=== PATIENT | male | born 1950 | race Caucasian/White ===

== ENCOUNTER → 2016-08-22 | Outpatient (CLI) | payer BC ==
[~2016-08-22] MED LIST: ASCO500T16 PO; CALCTAB5 PO
== END | disposition home or self-care (01) ==
LOC: C.LABPVFM 08:35
PROVIDERS: ATTEND Family Medicine
DX: C61 Malignant neoplasm of prostate (principal)

== ENCOUNTER → 2017-02-27 | Outpatient (CLI) | payer OTHER, BC | END | disposition home or self-care (01) | LOC: C.LABPVFM 09:40 | PROVIDERS: ATTEND Family Medicine | DX: C61 Malignant neoplasm of prostate (principal) ==

== ENCOUNTER → 2017-06-12 | Outpatient (CLI) | payer OTHER, BC | END | disposition home or self-care (01) | LOC: C.LABSPEC 16:25 | PROVIDERS: ATTEND Dermatology | DX: L30.0 Nummular dermatitis (principal) ==

== ENCOUNTER → 2017-07-06 | Outpatient (CLI) | payer OTHER, BC ==
[2017-07-06 13:11] LABS: HEMATOCRIT 46.4 % (42-52); HEMOGLOBIN 16.1 g/dL (14.0-18.0); MEAN CELL VOLUME 102.9 fL (80-100); MEAN CORPUSCULAR HEMOGLOBIN 35.7 pg (25-34); MEAN CORPUSCULAR HGB CONC 34.7 g/dl (32-36); MEAN PLATELET VOLUME 10.6 fL (7.4-10.4); PLATELET COUNT 192 K/uL (130-400); RED CELL DISTRIBUTION WIDTH CV 13.2 % (11.5-14.5); RED CELL DISTRIBUTION WIDTH SD 49.9 fL (36.4-46.3); WHITE BLOOD COUNT 5.42 K/uL (4.8-10.8)
[2017-07-06 13:32] LABS: ALBUMIN 3.4 gm/dl (3.4-5.0); ALT/SGPT 41 U/L (12-78); BLOOD UREA NITROGEN 11 mg/dl (7-18); CALCIUM 8.6 mg/dl (8.5-10.1); CARBON DIOXIDE 26 mmol/L (21-32); CHOLESTEROL 169 mg/dl (0-200); CREATININE 0.84 mg/dl (0.60-1.40); GLUCOSE 81 mg/dl (70-99); LIPASE 105 U/L (73-393); POTASSIUM 3.8 mmol/L (3.5-5.1); SODIUM 137 mmol/L (136-145)
[2017-07-06 13:36] LABS: ALKALINE PHOSPHATASE 112 U/L (45-117); AST/SGOT 30 U/L (15-37); LDL CHOLESTEROL CALCULATED 96 mg/dl; TOTAL PROTEIN 7.2 gm/dl (6.4-8.2)
== END | disposition home or self-care (01) ==
LOC: C.LABPVFM 07:45
PROVIDERS: ATTEND Family Medicine
DX: E55.9 Vitamin D deficiency, unspecified (principal)

== ENCOUNTER → 2017-07-10 | Outpatient (CLI) | payer OTHER, BC ==
[~2017-07-10] MED LIST changes: +OPTIRAY 320 IV PRN
--- NOTE | 2017-07-10 08:15 | DIAGNOSTIC IMAGING REPORT ---
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 TECHNIQUE: Multidetector CT of the abdomen and pelvis was performed after the administration of intravenous contrast. IV contrast: 92 mL of Optiray 320. A dose lowering technique was used consistent with the principles of ALARA (as low as reasonably achievable). COMPARISON: 12/14/2015. CT DOSE (mGy.cm): The estimated cumulative dose is 421.92 mGy.cm. FINDINGS: Rod Filler topogram: Unremarkable. Lung bases: Minimal basilar opacities, likely atelectasis. Normal heart size. No pericardial or pleural effusion. Liver: Normal morphology. No liver lesion. Patent hepatic vasculature. Biliary: No intrahepatic or extrahepatic biliary ductal dilatation. Normal gallbladder. Pancreas: Mild parenchymal atrophy. Spleen: Normal. Adrenal glands: Normal. Kidneys and ureters: Normal. No hydronephrosis. Bladder: Incompletely evaluated secondary to underdistention. Pelvic organs: Postsurgical changes of prostatectomy. No suspicious nodular enhancement at the ureteral anastomosis. Bowel: Limited diverticulosis of the proximal sigmoid colon. Scattered diverticula noted elsewhere in the colon. No pericolonic inflammatory change. The appendix is normal. No bowel obstruction. Peritoneal cavity: No free fluid or intraperitoneal gas. Lymph nodes: Few scattered subcentimeter retroperitoneal and mesenteric lymph nodes. No pathologically enlarged lymph nodes by CT size criteria. Vasculature: Atherosclerosis of the normal caliber abdominal aorta. IVC patent. Abdominal wall: Small fat-containing umbilical hernia. Musculoskeletal: Degenerative changes of the spine. IMPRESSION: 1. Postsurgical changes of prostatectomy. No evidence of metastatic disease in the abdomen or pelvis. No lymphadenopathy. Electronically signed by: Quan Baxter M.D. 07/10/2017 8:13 AM Dictated Date/Time: 07/10/2017 8:06 AM
== END | disposition home or self-care (01) ==
LOC: C.CTS 07:37
PROVIDERS: ATTEND Family Medicine
DX: C61 Malignant neoplasm of prostate (principal); R10.13 Epigastric pain; Z90.79 Acquired absence of other genital organ(s)

== ENCOUNTER 2019-02-25 06:37 | Observation (INO) ==
--- NOTE | 2019-02-19 09:29 | PAT Medication Instructions ---
Medication Instructions Date of Service February 19, 2019 Home Medications calcium carbonate-vitamin D3 [Calcium 600 + D(3)] 1 cap PO DAILY cholecalciferol (vitamin D3) [Vitamin D3] 2,000 unit PO DAILY ranitidine HCl 150 mg PO HS DO NOT take the morning of surgery calcium carbonate-vitamin D3 [Calcium 600 + D(3)] 1 cap PO DAILY cholecalciferol (vitamin D3) [Vitamin D3] 2,000 unit PO DAILY Take evening before surgery ranitidine HCl 150 mg PO HS Other Notes If you have any questions please call us at [phone] or [phone] or [phone] or [phone]
--- NOTE | 2019-02-19 11:22 | Anesthesiology Consultation ---
Date of Service February 19, 2019 Assessment & Plan (1) Encounter for pre-operative examination: Chart Review Chart Review: Pending: Refer to Additional Notes / Consult section and Patient seen in Pre Admission Testing pending ekg and labs Consults Requested none History Surgery Operation Date: 02/25/19 07:00 Proposed Procedures p Laparoscopic Umbilical Hernia Repair - Roni Vera MD, FACS Height/Weight Height: 5 ft 10 in Weight: 82.3 kg Allergies Allergy/AdvReac Type Severity Reaction Status Date / Time No Known Allergies Allergy Unknown Verified 02/14/19 11:25 Medications Home Medications Medication Instructions Recorded Confirmed Last Taken calcium carbonate-vitamin D3 1 cap PO DAILY 02/14/19 02/14/19 Unknown [Calcium 600 + D(3)] cholecalciferol (vitamin D3) 2,000 unit PO DAILY 02/14/19 02/14/19 Unknown [Vitamin D3] ranitidine HCl 150 mg PO HS 02/14/19 02/14/19 Unknown Past Medical History Medical History GERD (gastroesophageal reflux disease) Gout History of asthma A CHILD Osteoarthritis Peripheral neuropathy Prostate cancer Seasonal allergies Exercise / Class Metabolic Activity II 4-5 Yardwork/Stairs/Walk up hill Past Family History Family History Other No significant family history Past Surgical History Surgical History History of anesthesia reaction "SENSITIVE TO IT" History of arthroscopy LEFT KNEE History of cataract surgery RT/LEFT History of colonoscopy History of prostatectomy Past Anesthesia History No Hx of Anesthesia Complications and No Family Hx of Anesthesia Complications History of PONV No Hx of PONV and No Hx of Motion Sickness Social History Smoking Status: Current some day smoker tobacco type: cigars Smoking cigarettes per day: CIGAR OCCASIONALLY THROUGHOUT YEAR Do You Dip or Chew Tobacco: No Hx Alcohol Use: Yes Alcohol type: beer alcohol intake frequency: a few times a month Hx Substance Use: No substance use type: does not use Physical Exam Vital Signs Last Vital Signs Temp 36.9 C 02/19/19 11:16 Pulse 72 02/19/19 11:16 Resp 18 02/19/19 11:16 BP 126/72 02/19/19 11:16 Pulse Ox 97 09/24/19 11:16 ENMT Mouth: no TMJ abnormality and no dentition abnormality Thyromental Distance: > or= 3.5 Finger Breadths Mallampati Class: I Neck normal visual inspection Respiratory normal respiratory effort Auscultation: lungs clear to auscultation bilaterally Cardiovascular Rate/Rhythm: regular rate and regular rhythm Musculoskeletal Spine: normal cervical ROM and no pain with cervical ROM Neurologic moves all extremities Motor/Sensory: no sensory deficit Psychiatric Orientation: alert and oriented x 3
[2019-02-19 12:10] LABS: Basophils # (auto) 0.02 K/uL (0-0.2); Basophils % (auto) 0.5 %; Eosinophils # (auto) 0.07 K/uL (0-0.5); Eosinophils % (auto) 1.6 %; Hematocrit (blood only) 43.7 % (42-52); Immature Granulocytes # (auto) 0.01 K/uL (0.00-0.02); Immature Granulocytes % (auto) 0.2 %; Lymphocytes # (auto) 1.91 K/uL (1.2-3.4); Lymphocytes % (auto) 43.6 %; Mean Corpuscular Hemoglobin 35.1 pg (25-34); Mean Corpuscular Hgb Conc 34.3 g/dL (32-36); Mean Corpuscular Volume 102.3 fL (80-100); Mean Platelet Volume 10.2 fL (7.4-10.4); Monocytes # (auto) 0.63 K/uL (0.11-0.59); Monocytes % (auto) 14.4 %; Neutrophils # (auto) 1.74 K/uL (1.4-6.5); Neutrophils % (auto) 39.7 %; Platelet Count 189 K/uL (130-400); RDW Coefficient of Variation 13.1 % (11.5-14.5); Red Blood Count 4.27 M/uL (4.7-6.1); White Blood Count 4.38 K/uL (4.8-10.8)
[2019-02-19 12:28] LABS: BUN Creatinine Ratio 13.8 (10-20); Calcium 9.1 mg/dl (8.5-10.1); Creatinine Clr Calc Pharmacy 77.1 ml/min; Est GFR (African American) 94.4; Est GFR (Non-African American) 81.5; Potassium 3.7 mmol/L (3.5-5.1)
[~2019-02-25 06:37] MED LIST changes: -ASCO500T16 PO; -CALCTAB5 PO; +CEFAZOLIN 2000MG 2,000 MG/15 ML SYR IV SCH; +LR 15ML/HR IV SCH; -OPTIRAY 320 IV PRN
[2019-02-25] MEDS ORDERED: MIDAZOLAM HCL 1 MG/ML 2ML VIAL ONE (07:05)
[2019-02-25] MEDS ORDERED: fentaNYL citrate 100 MCG/2 ML VIAL ONE ×2 (07:05→08:23)
[2019-02-25] MEDS ORDERED: BUPIVACAINE 0.5 % 5 MG/1 ML MPF 30ML VIAL ONE (07:47)
[2019-02-25] MEDS ORDERED: LIDOCAINE HCL 1% 20 ML VIAL ONE (07:47)
[2019-02-25] MEDS ORDERED: CEFAZOLIN 250 MG/ML 1 GM VIAL ONE (07:56)
--- NOTE | 2019-02-25 07:56 | History & Physical Bridge Note ---
Date of Service February 25, 2019 History & Physical Bridge Note I have examined the patient, reviewed the History & Physical and in the interval since the performance of the History & Physical I have noted the following changes of clinical significance: no changes noted
[2019-02-25] MEDS ORDERED: ROCURONIUM BROMIDE 10 MG/ML 5 ML VIAL ONE (08:37)
[2019-02-25] MEDS ORDERED: PHENYLEPHRINE 100MCG/ML 5ML SYR ONE (08:37)
[2019-02-25] MEDS ORDERED: ePHEDrine sulfate 50 MG/ML SYR ONE (08:37)
[2019-02-25] MEDS ORDERED: DEXAMETHASONE SOD INJ 4 MG/ML VIAL ONE (08:37)
[2019-02-25] MEDS ORDERED: LIDOCAINE HCL 2% 2 ML VIAL/AMP(20MG/ML) INFIL ONE (08:37)
[2019-02-25] MEDS ORDERED: GLYCOPYRROLATE 0.2 MG/ML VIAL ONE (08:37)
[2019-02-25] MEDS ORDERED: NEOSTIGMINE METHYLSULFATE 5 MG/5 ML SYR ONE (08:37)
[2019-02-25] MEDS ORDERED: PROPOFOL IV EMULSION 10 MG/ML 20 ML VIAL IV ONE (08:37)
[2019-02-25] MEDS ORDERED: ONDANSETRON INJ 2 MG/ML 2 ML VIAL ONE (08:37)
[2019-02-25] MEDS ORDERED: ONDANSETRON INJ 2 MG/ML 2 ML VIAL IV PRN (09:04)
[2019-02-25] MEDS ORDERED: ePHEDrine sulfate 50 MG/ML AMP IV PRN (09:04)
[2019-02-25] MEDS ORDERED: METOCLOPRAMIDE HCL INJ 5 MG/ML 2 ML VIAL IV PRN (09:04)
[2019-02-25] MEDS ORDERED: HYDROmorphone INJ 2 MG/ML SYR/VIAL IV PRN (09:04)
[2019-02-25] MEDS ORDERED: PROMETHAZINE HCL 12.5 MG in SODIUM CHLORIDE 0.9% 50 ML IV PRN ×2 (09:04→10:20)
[2019-02-25] MEDS ORDERED: ATROPINE SULFATE 0.1 MG/ML 10ML SYR IV PRN (09:04)
--- NOTE | 2019-02-25 09:08 | Operative Report ---
PG Post Operative Report Pre & Post Diagnosis Operation Date: 02/25/19 08:10 Pre-Op Diagnosis: Umbilical Hernia Post-Op Diagnosis: Umbilical Hernia Procedure Operation Date: 02/25/19 08:10 Actual Procedures p Laparoscopic Umbilical Hernia Repair(Not Applicable) - Roni Vera MD, FACS Surgeon Roni Vera MD, FACS Mill Recorder Nahed Sanchez Estimated Blood Loss 10 Findings Consistent with Post-Op Diagnosis Specimens none Description of Procedure see dictation used 12.5 cm surgimesh I attest to the content of the Intraoperative Record and any orders documented therein. Any exceptions are noted below.
[2019-02-25] MEDS ORDERED: ACETAMINOPHEN 1,000 MG/100 ML VIAL IV ONE (09:13)
[2019-02-25] MEDS: fentaNYL citrate 100 MCG/2 ML VIAL IV PRN ×3 (09:31→09:42)
--- NOTE | 2019-02-25 09:54 | Anesthesiology Progress Note ---
Date of Service February 25, 2019 Anesthesia Post Procedure Vital Signs Vital Signs: Temp Pulse Pulse Resp BP Pulse Ox 02/25/19 09:50 36.4 C L 85 13 115/66 98 02/25/19 09:40 53 L 13 115/66 99 02/25/19 09:30 60 12 122/63 99 02/25/19 09:21 36 C L 79 18 150/77 H 97 02/25/19 07:00 36.7 C 72 16 151/86 H 97 Pain Intensity Abdomen: Pain Intensity: 3 Transfer of Care Handoff Completed per policy Notes Mental Status: alert / awake / arousable and participated in evaluation Patient Amnestic to Procedure: Yes Nausea / Vomiting: adequately controlled Pain: adequately controlled Airway Patency, RR, SpO2: stable & adequate BP & HR: stable & adequate Hydration State: stable & adequate Anesthetic Complications: no major complications apparent
--- NOTE | 2019-02-25 10:03 | Operative Report ---
DATE OF OPERATION: 02/25/2019 NAME OF OPERATION: Laparoscopic incisional hernia repair. PREOPERATIVE DIAGNOSIS: Incisional hernia. POSTOPERATIVE DIAGNOSIS: Incisional hernia with 3 cm defect. STAFF SURGEON: Roni Vera MD [employer] RIGGER: Cricket Sanchez PA-C ANESTHESIA: General. DESCRIPTION OF PROCEDURE: The patient was brought in the operating room and placed on the operating table in supine position. His abdomen was prepped and draped in usual fashion. Pneumatic stockings, orogastric tube were placed. Incision was made in the left upper quadrant using 0.5% plain Marcaine to anesthetize all incisions. Incision was carried down to the fascia, placing a Veress needle producing pneumoperitoneum. Under visualization, four 5 mm ports were placed, 2 in the left, 2 in the right under visualization. The patient did have some mild adhesions on the left side, which were taken down. These were omentum from prior surgery. The hernia contents had reduced. On CAT scan, it contained small bowel. At this point, it appeared the defect was approximately 3 cm in diameter. A 12.5-cm piece of Surgimesh was obtained. Adipose tissue was dissected away from the superior part of the abdomen just above the hernia defect to expose the fascia. The mesh was placed into the abdomen. It was opened. The polypropylene was toward the fascia, the silicone toward the bowel. It was brought up through a small incision over the sac and then it was secured in 2 rows, an outer and inner row of absorbable tacks. With good positioning, the Prolene suture was removed. All ports were then removed, the pneumoperitoneum reduced. Left upper quadrant fascia closed using 0 Vicryl suture. Incisions closed using 5-0 Prolene suture except the left upper quadrant which was subcuticular 4-0 Monocryl and Steri-Strips. The patient was transferred to recovery room in stable condition. My geriatric nursing assistant helped with prepping, draping, repair of the hernia and closure of the wounds. I attest to the content of the Intraoperative Record and any orders documented therein. Any exception s are noted below.
[2019-02-25] MEDS ORDERED: IBUPROFEN 600 MG TAB PO PRN (10:20)
[2019-02-25] MEDS ORDERED: PROMETHAZINE HCL 25 MG in SODIUM CHLORIDE 0.9% 50 ML IV PRN (10:20)
[2019-02-25] MEDS ORDERED: HYDROmorphone INJ 1 MG/ML SYRINGE IV PRN (10:20)
[2019-02-25] MEDS ORDERED: HYDROmorphone INJ 0.5 MG/0.5 ML SYR IV PRN (10:20)
[2019-02-25] MEDS ORDERED: HYDROCODONE/ACETAMOPHEN 5/325MG TAB PO PRN (10:20)
[2019-02-25] MEDS: HYDROCODONE/ACETAMOPHEN 5/325MG TAB PO PRN ×3 (11:48→18:29)
[2019-02-25] MEDS: SODIUM CHLORIDE 0.9% 1000ML 1,000 ML IV SCH (11:49)
[2019-02-25] MEDS: ONDANSETRON INJ 2 MG/ML 2 ML VIAL IV PRN ×2 (12:45→21:01)
[2019-02-25] MEDS ORDERED: ACETAMINOPHEN 325 MG TAB PO PRN (13:00)
[2019-02-25] MEDS ORDERED: INFLUENZA VIRUS QUAD VACCINE 0.5 ML SYR IM ONE (13:15)
[2019-02-25] MEDS ORDERED: INFLUENZA ADMINISTRATION CHARGE ONE (13:15)
[2019-02-25] MEDS: CEFAZOLIN 1000MG 1,000 MG/7.5 ML SYR IV SCH (18:30)
[2019-02-25] MEDS: DOCUSATE SODIUM/SENNA 50/8.6MG TAB PO SCH (21:41)
[2019-02-25] MEDS: MAGNESIUM HYDROXIDE SUSP 30 ML UDC PO SCH (21:41)
[2019-02-25] MEDS ORDERED: CALCIUM CARBONATE 500 MG CHEWABLE TAB PO PRN (21:59)
[2019-02-26] MEDS: CEFAZOLIN 1000MG 1,000 MG/7.5 ML SYR IV SCH ×2 (01:28→09:38)
[2019-02-26 05:45] LABS: Hematocrit (blood only) 40.4 % (42-52); Hemoglobin 13.9 g/dL (14.0-18.0); Immature Granulocytes # (auto) 0.02 K/uL (0.00-0.02); Immature Granulocytes % (auto) 0.2 %; Lymphocytes % (auto) 13.9 %; Mean Corpuscular Hemoglobin 35.3 pg (25-34); Mean Corpuscular Hgb Conc 34.4 g/dL (32-36); Mean Corpuscular Volume 102.5 fL (80-100); Mean Platelet Volume 9.9 fL (7.4-10.4); Monocytes # (auto) 0.95 K/uL (0.11-0.59); Monocytes % (auto) 9.4 %; Neutrophils # (auto) 7.72 K/uL (1.4-6.5); Neutrophils % (auto) 76.5 %; Platelet Count 183 K/uL (130-400); RDW Coefficient of Variation 12.8 % (11.5-14.5); RDW Standard Deviation 48.2 fL (36.4-46.3); Red Blood Count 3.94 M/uL (4.7-6.1); White Blood Count 10.09 K/uL (4.8-10.8)
[2019-02-26] MEDS: SODIUM CHLORIDE 0.9% 1000ML 1,000 ML IV SCH (05:58)
[2019-02-26 06:17] LABS: BUN Creatinine Ratio 15.1 (10-20); Calcium 8.3 mg/dl (8.5-10.1); Creatinine Clr Calc Pharmacy 84.1 ml/min; Est GFR (Non-African American) 88.9; Magnesium 2.1 mg/dl (1.8-2.4); Potassium 3.8 mmol/L (3.5-5.1)
[2019-02-26 06:20] LABS: Bilirubin,Total 0.8 mg/dl (0.2-1); Phosphorus 3.1 mg/dl (2.5-4.9)
--- NOTE | 2019-02-26 07:19 | Discharge Summary ---
PRINCIPAL DIAGNOSIS: Incisional hernia. PROCEDURES: The patient underwent a laparoscopic incisional hernia repair. HISTORY OF PRESENT ILLNESS: The patient is a 68-year-old male who had robotic prostate surgery and has developed incisional hernia in the area of the periumbilical incision. HOSPITAL COURSE: Brought into the hospital on 02/25/2019 where he underwent laparoscopic incisional hernia repair which he tolerated well. He has done well overnight. He did have some initial nausea but feels well now and is tolerating liquids and would like to go home. I do feel he is stable to be discharged, to be seen in the surgical office within 1 week.
[2019-02-26] MEDS: DOCUSATE SODIUM/SENNA 50/8.6MG TAB PO SCH (08:52)
[2019-02-26] MEDS: MAGNESIUM HYDROXIDE SUSP 30 ML UDC PO SCH (08:52)
== END 2019-02-26 11:17 | disposition home or self-care (01) ==
LOC: ASU 06:37 → 3W 06:37

== ENCOUNTER 2020-02-14 16:26 | Observation (INO) ==
[2020-02-14] MEDS ORDERED: NITROGLYCERIN SL 0.4 MG/TAB TAB SL STA (16:36)
[2020-02-14] MEDS ORDERED: ONDANSETRON INJ 2 MG/ML 2 ML VIAL IV STA (16:36)
[2020-02-14] MEDS ORDERED: ASPIRIN CHEW 324 MG PO STA (16:36)
[2020-02-14] MEDS ORDERED: GI COCKTAIL ED USE PO ONE (16:36)
--- NOTE | 2020-02-14 16:46 | Emergency Department Note ---
Impression & Plan Chest pain ED Provider Note NAME: WERNER JERNIGAN AGE: 69 SEX: M : 1950 ARRIVES VIA: Walk-In INFORMANT: Patient, ED PROVIDER(S): Ant Woods DO CHIEF COMPLAINT: Chest pain HPI: The patient is a 69-year-old male who presented to the emergency department for an evaluation of chest discomfort. The patient describes left-sided chest discomfort which he described as a pressure. He states it is also associated with shortness of breath and nausea. The patient states he has been having intermittent symptoms over the last few weeks. The patient states he was seen by his primary care physician and started on a medication for possible asthma. The patient states he has had nonproductive cough but usually has shortness of breath without cough. He states his symptoms are somewhat worsened with exertion and but not relieved completely with rest. He denies having any fevers. He has had no recent traveling. He denies having any lower extremity swelling. The patient states his symptoms are significantly improved at this time. He also states his heart was racing. He has a history of paroxysmal A. fib but it was after surgery. ROS: See above HPI for pertinent positives & negatives. A total of 10 systems reviewed and were otherwise negative. PAST MEDICAL HISTORY: See Below PAST SURGICAL HISTORY: See Below FAMILY HISTORY: See Below SOCIAL HISTORY: See Below HOME MEDICATIONS: See Below ALLERGIES: See Below VITALS: See Below PHYSICAL EXAMINATION: GENERAL: Patient is awake alert in no acute distress patient is resting comfortably and showing no signs of anxiety EYES: The conjunctivae are clear. The pupils are round and reactive. EARS, NOSE, MOUTH AND THROAT: The nose is without any evidence of any deformity. NECK: The neck is nontender and supple. RESPIRATORY: Normal respiratory effort is noted there is no evidence of wheezing rhonchi or rales CARDIOVASCULAR: Regular rate and rhythm noted there no murmurs rubs or gallops normal S1 normal S2. GASTROINTESTINAL: The abdomen is soft. Abdomen is nontender. MUSCULOSKELETAL/EXTREMITIES: There is no evidence of gross deformity full range of motion is noted in the hips and shoulders. SKIN: There is no obvious evidence of any rash. There are no petechiae, pallor or cyanosis noted. No calf tenderness was elicited. NEUROLOGIC: Patient is awake alert and oriented x3. MEDICAL DECISION MAKING: The patient is a 69-year-old male who presented to the emergency department for an evaluation of chest pain. The patient was having intermittent episodes of chest pain over the last 2 weeks. He was seen by his primary care physician and was treated for respiratory bronchospasm. He states his symptoms were not improving with this modality. He presents emergency department today with worsening pain. The patient does have risk factors for coronary artery disease. He was treated with aspirin and nitroglycerin in the emergency department. On subsequent reevaluation he was feeling much better. He was found to have an elevated d-dimer so CT of the chest was obtained but no signs of pulmonary venous thromboembolic disease were noted. Given the patient's risk factors I notified the [facility] about the patient's condition. They will evaluate the patient in the emergency department for further management and disposition. Triage Nursing notes reviewed. Prior medical records reviewed Vital Signs: reviewed and remarkable for no significant abnormalities Differential diagnosis: Cardiac ischemia, aortic dissection, pulmonary embolism, pneumothorax, pneumonia, pericarditis, myocarditis, esophageal rupture, GERD, cholecystitis, pancreatitis, musculoskeletal, as well as other pathologies. ER treatment provided: See below Diagnostics interpreted by me: ECG: EKG was obtained in the emergency department. My interpretation is normal sinus rhythm at [address] segment abnormalities were noted. There were no PVCs. This was compared to a tracing from February 192018. No significant changes were noted. Cardiac Monitoring: An order was placed for continuous cardiac monitoring. The monitor shows a rate of 72 bpm with sinus rhythm. Laboratory studies: As stated above and show below. Imaging studies: See below Consultation(s): The [facility] group was consulted to evaluate the patient for inpatient management. Past Med/Surg History Medical History Acute sinus infection GERD (gastroesophageal reflux disease) Gout History of actinic keratoses History of asthma A CHILD History of squamous cell carcinoma in situ of skin Osteoarthritis Peripheral neuropathy Prostate cancer Seasonal allergies Surgical History History of anesthesia reaction "SENSITIVE TO IT" History of arthroscopy LEFT KNEE History of cataract surgery RT/LEFT History of colonoscopy History of prostatectomy History of vasectomy Hx of umbilical hernia repair (02/25/19) Laparoscopic Umbilical Hernia Repair Dr. Vera 02/25/19 Family History Father Prostate cancer Brother Myocardial infarction Other Bladder cancer Nephrolithiasis Denies family history of Ovarian cancer Breast cancer Bleeding disorder Colorectal cancer Social History Smoking Status: Never smoker Cigarettes Per Day: CIGAR OCCASIONALLY THROUGHOUT YEAR; Second Hand Exposure: No; Hx Alcohol Use: Yes Alcohol type: beer Hx Substance Use: No Preferred Language: Greek Communication Ability: Effective [employer] Plant Required: No Beliefs That Will Affect Care: None marital status: Current Living Situation: Parent Feels Safe at Home: Yes Seatbelt Use: always Sunscreen Use: Yes Allergies Allergies Allergy/AdvReac Type Severity Reaction Status Date / Time lactose AdvReac Intermediate Abdominal Verified 02/14/20 18:45 Pain Home Meds Home Medications Medication Instructions Recorded Confirmed calcium carbonate-vitamin D3 1 tab PO HS 02/14/20 02/14/20 [Caltrate 600 plus D] cholecalciferol (vitamin D3) 50 mcg PO HS 02/14/20 02/14/20 [Vitamin D3] omeprazole 40 mg PO HS 02/14/20 02/14/20 Previous Rx's Medication Instructions Recorded albuterol sulfate 90 mcg/actuation 2 puff INHALATION 6XD PRN #6.7 g 02/04/20 aerosol inhaler Results & Data (ED) Vital Signs Vital Signs - 24 hr 02/14/20 16:29 02/14/20 16:36 02/14/20 16:37 Temperature 36.8 C Temperature Source Oral Pulse Rate 100 H 85 87 Pulse Rate from SpO2 Sensor 87 89 Respiratory Rate 18 15 14 Respiratory Effort / Characteristics Non-Labored Spontaneous Respiratory Depth Normal Blood Pressure 170/82 H 151/83 H Blood Pressure Mean 111 106 Blood Pressure Position Sitting Pulse Oximetry 97 98 99 Oxygen Delivery Method Room Air Sepsis Recent Fever Within 48 Hours No Sepsis New/Unexplained Change in Mental Status No Sepsis Action Taken by Nursing No Action Required 02/14/20 16:40 02/14/20 16:41 02/14/20 16:50 Temperature Temperature Source Pulse Rate 83 85 Pulse Rate from SpO2 Sensor 84 88 Respiratory Rate 14 21 Respiratory Effort / Characteristics Respiratory Depth Blood Pressure Blood Pressure Mean Blood Pressure Position Pulse Oximetry 99 99 97 Oxygen Delivery Method Room Air Sepsis Recent Fever Within 48 Hours Sepsis New/Unexplained Change in Mental Status Sepsis Action Taken by Nursing 02/14/20 17:00 02/14/20 17:10 02/14/20 17:20 Temperature Temperature Source Pulse Rate 77 74 83 Pulse Rate from SpO2 Sensor 77 75 Respiratory Rate 21 12 17 Respiratory Effort / Characteristics Respiratory Depth Blood Pressure 129/79 Blood Pressure Mean 90 Blood Pressure Position Pulse Oximetry 98 98 Oxygen Delivery Method Sepsis Recent Fever Within 48 Hours Sepsis New/Unexplained Change in Mental Status Sepsis Action Taken by Nursing 02/14/20 17:30 02/14/20 17:40 02/14/20 17:51 Temperature Temperature Source Pulse Rate 66 79 65 Pulse Rate from SpO2 Sensor 67 67 Respiratory Rate 14 15 18 Respiratory Effort / Characteristics Respiratory Depth Blood Pressure 128/69 Blood Pressure Mean 73 Blood Pressure Position Pulse Oximetry 98 99 Oxygen Delivery Method Sepsis Recent Fever Within 48 Hours Sepsis New/Unexplained Change in Mental Status Sepsis Action Taken by Nursing 02/14/20 18:00 02/14/20 18:10 02/14/20 18:20 Temperature Temperature Source Pulse Rate 61 55 L 60 Pulse Rate from SpO2 Sensor 62 55 L 63 Respiratory Rate 9 L 13 17 Respiratory Effort / Characteristics Respiratory Depth Blood Pressure 124/69 Blood Pressure Mean 94 Blood Pressure Position Pulse Oximetry 99 98 96 Oxygen Delivery Method Sepsis Recent Fever Within 48 Hours Sepsis New/Unexplained Change in Mental Status Sepsis Action Taken by Nursing 02/14/20 18:30 02/14/20 18:40 02/14/20 18:50 Temperature Temperature Source Pulse Rate 61 76 54 L Pulse Rate from SpO2 Sensor 62 54 L Respiratory Rate 18 19 13 Respiratory Effort / Characteristics Respiratory Depth Blood Pressure 137/78 Blood Pressure Mean 100 Blood Pressure Position Pulse Oximetry 100 99 Oxygen Delivery Method Sepsis Recent Fever Within 48 Hours Sepsis New/Unexplained Change in Mental Status Sepsis Action Taken by Nursing 02/14/20 19:00 02/14/20 19:10 02/14/20 19:26 Temperature Temperature Source Pulse Rate 70 68 87 Pulse Rate from SpO2 Sensor 67 67 Respiratory Rate 12 Respiratory Effort / Characteristics Respiratory Depth Blood Pressure 142/75 H Blood Pressure Mean 103 Blood Pressure Position Pulse Oximetry 99 100 Oxygen Delivery Method Sepsis Recent Fever Within 48 Hours Sepsis New/Unexplained Change in Mental Status Sepsis Action Taken by Nursing 02/14/20 19:30 02/14/20 19:40 02/14/20 19:50 Temperature Temperature Source Pulse Rate 71 75 71 Pulse Rate from SpO2 Sensor 71 75 71 Respiratory Rate 18 Respiratory Effort / Characteristics Respiratory Depth Blood Pressure 139/70 Blood Pressure Mean 98 Blood Pressure Position Pulse Oximetry 99 98 97 Oxygen Delivery Method Sepsis Recent Fever Within 48 Hours Sepsis New/Unexplained Change in Mental Status Sepsis Action Taken by Nursing 02/14/20 20:00 02/14/20 20:10 02/14/20 20:21 Temperature Temperature Source Pulse Rate 84 72 100 H Pulse Rate from SpO2 Sensor 85 73 Respiratory Rate Respiratory Effort / Characteristics Respiratory Depth Blood Pressure 122/61 Blood Pressure Mean 72 Blood Pressure Position Pulse Oximetry 98 97 Oxygen Delivery Method Sepsis Recent Fever Within 48 Hours Sepsis New/Unexplained Change in Mental Status Sepsis Action Taken by Nursing 02/14/20 20:30 02/14/20 20:40 Temperature Temperature Source Pulse Rate 61 68 Pulse Rate from SpO2 Sensor 64 68 Respiratory Rate Respiratory Effort / Characteristics Respiratory Depth Blood Pressure 137/68 Blood Pressure Mean 111 Blood Pressure Position Pulse Oximetry 97 97 Oxygen Delivery Method Sepsis Recent Fever Within 48 Hours Sepsis New/Unexplained Change in Mental Status Sepsis Action Taken by [facility] Medications Current Medication List: was personally reviewed by me Laboratory Data Attestation: I reviewed the patient's lab results. Result diagrams: 02/14/20 16:41 02/14/20 16:41 Lab Results 02/14/20 02/14/20 02/14/20 Range/Units 16:41 16:41 16:41 WBC 6.36 (4.8-10.8) K/uL RBC 4.40 L (4.7-6.1) M/uL Hgb 15.6 (14.0-18.0) g/dL Hct 45.3 (42-52) % MCV 103.0 H (80-100) fL MCH 35.5 H (25-34) pg MCHC 34.4 (32-36) g/dL RDW Std Deviation 49.1 H (36.4-46.3) fL RDW Coeff of Chris 13.1 (11.5-14.5) % Plt Count 212 (130-400) K/uL MPV 9.6 (7.4-10.4) fL Immature Gran % (Auto) 0.5 % Neut % (Auto) 40.7 % Lymph % (Auto) 46.1 % Mcleod % (Auto) 11.6 % Eos % (Auto) 0.9 % Baso % (Auto) 0.2 % Neut # (Auto) 2.59 (1.4-6.5) K/uL Lymph # (Auto) 2.93 (1.2-3.4) K/uL Mcleod # (Auto) 0.74 H (0.11-0.59) K/uL Eos # (Auto) 0.06 (0-0.5) K/uL Baso # (Auto) 0.01 (0-0.2) K/uL Immature Gran # (Auto) 0.03 H (0.00-0.02) K/uL PT Cancelled INR Cancelled APTT Cancelled PTT Ratio Cancelled D-Dimer Cancelled Sodium 140 (136-145) mmol/L Potassium 3.5 (3.5-5.1) mmol/L Chloride 107 (98-107) mmol/L Carbon Dioxide 26 (21-32) mmol/L Anion Gap 8.0 (3-11) BUN 16 (7-18) mg/dl Creatinine 1.16 (0.6-1.4) mg/dl Est Cr Clr Drug Dosing 60.9 ml/min Est GFR ( Amer) 74.6 Est GFR (Non-Af Amer) 64.3 BUN/Creatinine Ratio 14.1 (10-20) Glucose 102 H (70-99) mg/dl Calcium 8.8 (8.5-10.1) mg/dl Total Bilirubin 0.8 (0.2-1) mg/dl AST 33 (15-37) U/L ALT 36 (12-78) U/L Alkaline Phosphatase 122 H (45-117) U/L Troponin I < 0.015 (0-0.045) ng/ml Total Protein 7.2 (6.4-8.2) gm/dl Albumin 3.3 L (3.4-5.0) gm/dl Globulin 3.9 (2.5-4.0) gm/dl Albumin/Globulin Ratio 0.9 (0.9-2) Lipase 146 (73-393) U/L 02/14/20 Range/Units 17:15 WBC (4.8-10.8) K/uL RBC (4.7-6.1) M/uL Hgb (14.0-18.0) g/dL Hct (42-52) % MCV (80-100) fL MCH (25-34) pg MCHC (32-36) g/dL RDW Std Deviation (36.4-46.3) fL RDW Coeff of Chris (11.5-14.5) % Plt Count (130-400) K/uL MPV (7.4-10.4) fL Immature Gran % (Auto) % Neut % (Auto) % Lymph % (Auto) % Mcleod % (Auto) % Eos % (Auto) % Baso % (Auto) % Neut # (Auto) (1.4-6.5) K/uL Lymph # (Auto) (1.2-3.4) K/uL Mcleod # (Auto) (0.11-0.59) K/uL Eos # (Auto) (0-0.5) K/uL Baso # (Auto) (0-0.2) K/uL Immature Gran # (Auto) (0.00-0.02) K/uL PT 10.9 INR 1.0 APTT 26.8 PTT Ratio 1.0 D-Dimer 700 H* Sodium (136-145) mmol/L Potassium (3.5-5.1) mmol/L Chloride (98-107) mmol/L Carbon Dioxide (21-32) mmol/L Anion Gap (3-11) BUN (7-18) mg/dl Creatinine (0.6-1.4) mg/dl Est Cr Clr Drug Dosing ml/min Est GFR ( Amer) Est GFR (Non-Af Amer) BUN/Creatinine Ratio (10-20) Glucose (70-99) mg/dl Calcium (8.5-10.1) mg/dl Total Bilirubin (0.2-1) mg/dl AST (15-37) U/L ALT (12-78) U/L Alkaline Phosphatase (45-117) U/L Troponin I (0-0.045) ng/ml Total Protein (6.4-8.2) gm/dl Albumin (3.4-5.0) gm/dl Globulin (2.5-4.0) gm/dl Albumin/Globulin Ratio (0.9-2) Lipase (73-393) U/L Administered Medications Discontinued Medications Al Hydrox/Mg Hydrox/Simethicone (Gi Cocktail Ed Use) 1 dose PO ONE ONE Stop: 02/14/20 16:37 Last Admin: 02/14/20 16:40 Dose: 1 dose Documented by: [id number] Aspirin (Aspirin Chew 324 Mg) 324 mg PO NOW STA Stop: 02/14/20 16:37 Last Admin: 02/14/20 16:40 Dose: 324 mg Documented by: [id number] Ioversol (Optiray 320 125ml) 100 ml IV ONCE ONE Stop: 02/14/20 19:20 Last Admin: 02/14/20 19:19 Dose: 100 ml Documented by: [id number] Nitroglycerin (Nitroglycerin Sl 0.4 Mg/Tab Tab) 0.4 mg SL NOW STA Stop: 02/14/20 16:37 Last Admin: 02/14/20 16:40 Dose: 0.4 mg Documented by: [id number] Ondansetron HCl (Ondansetron Inj 2 Mg/Ml 2 Ml Vial) 4 mg IV NOW STA Stop: 02/14/20 16:37 Last Admin: 02/14/20 16:40 Dose: 4 mg Documented by: [id number] Imaging Data Radiologist's Impression: CHEST CTA for PULMONARY ARTERIES CT DOSE: 347.01 mGy.cm HISTORY: Shortness of breath. Atypical chest pain. TECHNIQUE: Multiaxial CT images of the chest were performed following the intravenous administration of contrast to evaluate the pulmonary arteries. Maximal intensity projection images were also obtained. A dose lowering technique was utilized adhering to the principles of ALARA. COMPARISON STUDY: Chest 02/14/2020. FINDINGS: Normal caliber thoracic aorta with no evidence for dissection. The heart is normal in size. No pleural or pericardial effusions. No filling defects within the pulmonary arteries to suggest pulmonary embolus. Limited views of the upper abdomen demonstrate normal liver, spleen, and adrenal glands. The esophagus is normal in caliber. No mediastinal or hilar lymphadenopathy. No suspicious lytic or blastic osseous lesions. No pneumothorax. The central airways are patent. There is mild bronchiectasis. A 4 mm calcified granuloma within the base of the left lower lobe on image 17. A 4 mm nodule within the left lower lobe on image 108. A 4 mm groundglass nodule within the left lung apex on image 232. Nodular densities within the right lung apex may represent areas of scarring. Dominant nodule within the right lung apex on image 222 measures 5 mm. Peripheral subpleural reticular densities are noted. IMPRESSION: 1. No evidence for pulmonary embolus. 2. Subpleural reticular densities and mild bronchiectasis are noted. This favors a chronic initial lung disease. 3. A few scattered subcentimeter pulmonary nodules as described above the largest in the right lung apex measuring 5 mm. Please refer to the chart below for recommended follow-up. Please refer to below summary of Fleischner criteria recommendations for follow- up of incidental CT nodules (Horace Hernandez, Guidelines for management of small pulmonary nodules detected on CT scans: A statement from the Fleischner Society, Radiology 237: [phone].) SOLID NODULES Solitary nodule size: <6 mm * Low risk patients: no follow-up needed * high risk patients: optional CT at 12 months Solitary nodule size: 6-8 mm * Low risk patients: follow-up at 6-12 months, then consider further follow-up at 18-24 months * high risk patients: initial follow-up CT at 6-12 months and then at 18-24 months if no change Solitary nodule size: >8 mm * either low or high risk patients - consider follow-up CT at 3 months, and/or CT-PET, and/or biopsy Multiple nodules size: <6 mm * Low risk patients: no routine follow-up * high risk patients: optional CT at 12 months Multiple nodules size: 6-8 mm * Low risk patients: follow-up at 3-6 months, then consider further follow-up at 18-24 months * high risk patients: follow-up at 3-6 months, then at 18-24 months if no change Multiple nodules size: >8 mm * Low risk patients: follow-up at 3-6 months, then consider further follow-up at 18-24 months * high risk patients: follow-up at 3-6 months, then at 18-24 months if no change Note: newly detected indeterminate nodule in persons 35 years of age or older. * Low risk patients: minimal or absent history of smoking and/or other known risk factors * high risk patients: history of smoking or of other known risk factors (e.g. first degree relative with lung cancer, or exposure to asbestos, radon, uranium) * if a nodule up to 8 mm is partly solid or is ground glass further follow-up is required after 24 months to exclude possible slow growing adenocarcinoma (JS) SUBSOLID NODULES Solitary pure ground-glass nodule * nodule size <6 mm - no CT follow-up required * nodule size >=6 mm - follow-up CT at 6-12 months, then every 2 years until 5 years Solitary part-solid nodule * nodule size <6 mm - no CT follow-up required * nodule size >=6 mm - follow-up CT at 3-6 months. If unchanged, and solid component remains <6 mm, then annual follow-up for 5 years Multiple subsolid nodules * nodule size <6 mm - follow-up CT at 3-6 months, consider further follow-up at 2 and 4 years if stable * nodule size >=6 mm - follow-up CT at 3-6 months, subsequent management based on the most suspicious nodule(s) ACT 112: Negative or not required by law. XR chest 1V portable HISTORY: Atypical Chest Pain COMPARISON: Chest 02/04/2020. FINDINGS: Mild diffuse interstitial thickening which has improved. The heart is normal in size. No pleural effusions. No pneumothorax. No new focal lung consolidations. No evidence for pulmonary edema. IMPRESSION: Improvement in the mild interstitial thickening. No new focal lung consolidations to suggest pneumonia. ACT 112: Negative or not required by law. Electronically signed by: Augustus Cobian M.D. 02/14/2020 5:08 PM Dictated: 02/14/201705 Transcribed: 02/14/201705 Blood Pressure Blood Pressure Findings: Normal blood pressure Discharge Plan Visit Data Chief Complaint: Chest Pain Stated Complaint: CHEST PAIN ED Provider: Ant Woods Discharge Problem: Chest pain Patient Disposition: Being Evaluated by Hospitalist Condition: Good Forms Stand Alone Forms: WEALTH at work Prescriptions Prescriptions: No Action albuterol sulfate 90 mcg/actuation HFA aerosol inhaler 2 puff inhalation 6XD PRN (Reason: shortness of breath or wheezing) Qty: 6.7 RF: 0 cholecalciferol (vitamin D3) [Vitamin D3] 50 mcg (2,000 unit) Capsule 50 mcg PO HS RF: 0 Caltrate 600 plus D 600 mg (1,500 mg)-800 unit Tablet,Chewable 1 tab PO HS RF: 0 omeprazole 40 mg capsule,delayed release(DR/EC) 40 mg PO HS RF: 0 Referrals Referrals: Heather Frazier MD [Primary Care Provider] -
[2020-02-14 16:50] LABS: Basophils # (auto) 0.01 K/uL (0-0.2); Basophils % (auto) 0.2 %; Eosinophils # (auto) 0.06 K/uL (0-0.5); Eosinophils % (auto) 0.9 %; Hematocrit (blood only) 45.3 % (42-52); Hemoglobin 15.6 g/dL (14.0-18.0); Immature Granulocytes # (auto) 0.03 K/uL (0.00-0.02); Immature Granulocytes % (auto) 0.5 %; Lymphocytes # (auto) 2.93 K/uL (1.2-3.4); Lymphocytes % (auto) 46.1 %; Mean Corpuscular Hemoglobin 35.5 pg (25-34); Mean Corpuscular Hgb Conc 34.4 g/dL (32-36); Mean Platelet Volume 9.6 fL (7.4-10.4); Monocytes # (auto) 0.74 K/uL (0.11-0.59); Monocytes % (auto) 11.6 %; Neutrophils # (auto) 2.59 K/uL (1.4-6.5); Neutrophils % (auto) 40.7 %; Platelet Count 212 K/uL (130-400); RDW Coefficient of Variation 13.1 % (11.5-14.5); RDW Standard Deviation 49.1 fL (36.4-46.3); White Blood Count 6.36 K/uL (4.8-10.8)
[2020-02-14 17:08] LABS: Alanine Aminotransferase 36 U/L (12-78); Albumin Level 3.3 gm/dl (3.4-5.0); Aspartate Aminotransferase 33 U/L (15-37); BUN Creatinine Ratio 14.1 (10-20); Blood Urea Nitrogen 16 mg/dl (7-18); Calcium 8.8 mg/dl (8.5-10.1); Carbon Dioxide 26 mmol/L (21-32); Chloride 107 mmol/L (98-107); Creatinine Clr Calc Pharmacy 60.9 ml/min; Est GFR (African American) 74.6; Est GFR (Non-African American) 64.3; Glucose 102 mg/dl (70-99); Lipase 146 U/L (73-393); Potassium 3.5 mmol/L (3.5-5.1); Sodium 140 mmol/L (136-145)
--- NOTE | 2020-02-14 17:09 | XRay Report ---
XR chest 1V portable HISTORY: Atypical Chest Pain COMPARISON: Chest 02/04/2020. FINDINGS: Mild diffuse interstitial thickening which has improved. The heart is normal in size. No pl eural effusions. No pneumothorax. No new focal lung consolidations. No evidence for pulmonary edema. IMPRESSION: Improvement in the mild interstitial thickening. No new focal lung consolidations to suggest pneumoni a. ACT 112: Negative or not required by law. Electronically signed by: Augustus Cobian M.D. 02/14/2020 5:08 PM
[2020-02-14 17:13] LABS: Albumin Globulin Ratio 0.9 (0.9-2); Alkaline Phosphatase 122 U/L (45-117); Bilirubin,Total 0.8 mg/dl (0.2-1); Globulin 3.9 gm/dl (2.5-4.0); Total Protein 7.2 gm/dl (6.4-8.2); Troponin I < 0.015 ng/ml (0-0.045)
[2020-02-14 17:38] LABS: Partial Thromboplastin Time 26.8 Seconds (21.0-31.0); Prothrombin Time 10.9 Seconds (9.0-12.0)
[2020-02-14 17:50] LABS: D Dimer 700 ug/L FEU (0-500)
[2020-02-14] MEDS ORDERED: OPTIRAY 320 125ml IV ONE (19:19)
--- NOTE | 2020-02-14 19:36 | CT Scan Report ---
CHEST CTA for PULMONARY ARTERIES CT DOSE: 347.01 mGy.cm HISTORY: Shortness of breath. Atypical chest pain. TECHNIQUE: Multiaxial CT images of the chest were performed following the intravenous administration of contrast to evaluate the pulmonary arteries. Maximal intensity projection images were also obtaine d. A dose lowering technique was utilized adhering to the principles of ALARA. COMPARISON STUDY: Chest 02/14/2020. FINDINGS: Normal caliber thoracic aorta with no evidence for dissection. The heart is normal in size. No pleural or pericardial effusions. No filling defects within the pulmonary arteries to suggest pul monary embolus. Limited views of the upper abdomen demonstrate normal liver, spleen, and adrenal glan ds. The esophagus is normal in caliber. No mediastinal or hilar lymphadenopathy. No suspicious lytic or blastic osseous lesions. No pneumothorax. The central airways are patent. There is mild bronchiect asis. A 4 mm calcified granuloma within the base of the left lower lobe on image 17. A 4 mm nodule wi thin the left lower lobe on image 108. A 4 mm groundglass nodule within the left lung apex on image 2 32. Nodular densities within the right lung apex may represent areas of scarring. Dominant nodule wit hin the right lung apex on image 222 measures 5 mm. Peripheral subpleural reticular densities are not ed. IMPRESSION: 1. No evidence for pulmonary embolus. 2. Subpleural reticular densities and mild bronchiectasis are noted. This favors a chronic initial watson ng disease. 3. A few scattered subcentimeter pulmonary nodules as described above the largest in the right lung a pex measuring 5 mm. Please refer to the chart below for recommended follow-up. Please refer to below summary of Fleischner criteria recommendations for follow-up of incidental CT n odules (Horace Hernandez, Guidelines for management of small pulmonary nodules detected on CT scans: A sta tement from the Fleischner Society, Radiology 237: [phone].) SOLID NODULES Solitary nodule size: <6 mm * Low risk patients: no follow-up needed * high risk patients: optional CT at 12 months Solitary nodule size: 6-8 mm * Low risk patients: follow-up at 6-12 months, then consider further follow-up at 18-24 months * high risk patients: initial follow-up CT at 6-12 months and then at 18-24 months if no change Solitary nodule size: >8 mm * either low or high risk patients - consider follow-up CT at 3 months, and/or CT-PET, and/or biopsy Multiple nodules size: <6 mm * Low risk patients: no routine follow-up * high risk patients: optional CT at 12 months Multiple nodules size: 6-8 mm * Low risk patients: follow-up at 3-6 months, then consider further follow-up at 18-24 months * high risk patients: follow-up at 3-6 months, then at 18-24 months if no change Multiple nodules size: >8 mm * Low risk patients: follow-up at 3-6 months, then consider further follow-up at 18-24 months * high risk patients: follow-up at 3-6 months, then at 18-24 months if no change Note: newly detected indeterminate nodule in persons 35 years of age or older. * Low risk patients: minimal or absent history of smoking and/or other known risk factors * high risk patients: history of smoking or of other known risk factors (e.g. first degree relative with lung cancer, or exposure to asbestos, radon, uranium) * if a nodule up to 8 mm is partly solid or is ground glass further follow-up is required after 24 m onths to exclude possible slow growing adenocarcinoma (JS) SUBSOLID NODULES Solitary pure ground-glass nodule * nodule size <6 mm - no CT follow-up required * nodule size >=6 mm - follow-up CT at 6-12 months, then every 2 years until 5 years Solitary part-solid nodule * nodule size <6 mm - no CT follow-up required * nodule size >=6 mm - follow-up CT at 3-6 months. If unchanged, and solid component remains <6 mm, then annual follow-up for 5 years Multiple subsolid nodules * nodule size <6 mm - follow-up CT at 3-6 months, consider further follow-up at 2 and 4 years if sta ble * nodule size >=6 mm - follow-up CT at 3-6 months, subsequent management based on the most suspiciou s nodule(s) ACT 112: Negative or not required by law. Electronically signed by: Augustus Cobian M.D. 02/14/2020 7:35 PM
--- NOTE | 2020-02-14 22:23 | History & Physical Report ---
Date of Service February 14, 2020 Assessment & Plan (1) Chest pain: Chest pain/history of atrial fibrillation- The patient will be admitted to telemetry for serial cardiac enzymes, serial EKG's, cardiac rhythm monitoring and a 2-D echocardiogram with Dopplers. Initial troponin is negative Denies any symptoms of palpitations. Aspirin 81 mg daily No history of stress testing. Present on Admission?: Yes (2) GERD without esophagitis: Continue omeprazole 40 mg p.o. daily If cardiac work-up is negative, then further GI work-up may be needed in the outpatient setting Present on Admission?: Yes (3) Bilateral edema of lower extremity: Normal albumin. Upon questioning patient does report frequent intake of excessive amounts of salt. No echocardiogram or stress test reports. Reassess examination in a.m. and after appropriate laboratories and echocardiogram performed. Advised to decrease sodium intake Present on Admission?: Yes (4) Pulmonary nodules/lesions, multiple: CTA chest describes chronic interstitial lung disease and pulmonary nodules. Patient has no signs of respiratory infection. We will need to have serial CT examinations per protocol. He was given an albuterol HFA by his outpatient PCP, without improvement in sy mptoms. If cardiac work-up is negative, further pulmonary work-up may be needed in the outpatient setting Present on Admission?: Yes History of Present Illness Chief Complaint: The patient presents to the emergency department with complaint of chest heaviness x1 month that worsened significantly over the past 24 hours, associated with shortness of breath and brief episode of nausea Primary Care Provider: Heather Frazier MD The patient is a 69-year-old male with a past medical history including esophageal foreign body, globus sensation, recurrent abdominal pain, prostate cancer, atrial fibrillation, colon diverticulosis, GERD without esophagitis, squamous cell carcinoma of skin, chronic venous insufficiency and vitamin D deficiency. He presents with the above symptoms. He denies any recent travels or sick exposures including to COVID19. Allergies Allergy/AdvReac Type Severity Reaction Status Date / Time lactose AdvReac Intermediate Abdominal Verified 02/14/20 18:45 Pain Home Medications Home Medications Medication Instructions Recorded Confirmed Type albuterol sulfate 90 mcg/actuation 2 puff INHALATION 6XD PRN #6.7 g 02/04/20 02/14/20 Rx aerosol inhaler calcium carbonate-vitamin D3 1 tab PO HS 02/14/20 02/14/20 History [Caltrate 600 plus D] cholecalciferol (vitamin D3) 50 mcg PO HS 02/14/20 02/14/20 History [Vitamin D3] omeprazole 40 mg PO HS 02/14/20 02/14/20 History Past Med/Surg History Medical History Acute sinus infection GERD (gastroesophageal reflux disease) Gout History of actinic keratoses History of asthma A CHILD History of squamous cell carcinoma in situ of skin Osteoarthritis Peripheral neuropathy Prostate cancer Seasonal allergies Surgical History History of anesthesia reaction "SENSITIVE TO IT" History of arthroscopy LEFT KNEE History of cataract surgery RT/LEFT History of colonoscopy History of prostatectomy History of vasectomy Hx of umbilical hernia repair (02/25/19) Laparoscopic Umbilical Hernia Repair Dr. Vera 02/25/19 Family History Father Prostate cancer Brother Myocardial infarction Other Bladder cancer Nephrolithiasis Denies family history of Ovarian cancer Breast cancer Bleeding disorder Colorectal cancer Social History Smoking Status: Never smoker Cigarettes Per Day: CIGAR OCCASIONALLY THROUGHOUT YEAR; Second Hand Exposure: No; Do You Dip or Chew Tobacco: No; Tobacco Cessation Education Requested by Patient: No Hx Alcohol Use: Yes Alcohol type: beer Hx Substance Use: No Preferred Language: Czech Communication Ability: Effective Nursing Service Administrator Required: No Beliefs That Will Affect Care: None marital status: Current Living Situation: Spouse Current Living Situation Comment: House Other Information That Helps Us Care for You: No Feels Safe at Home: Yes Safety Concerns: Feels Safe At This Time Seatbelt Use: always Sunscreen Use: Yes Review of Systems Review of Systems: The patient denies palpitations, cough, sore throat, fevers, chills, sweats, weight change, fatigue, vomiting, diarrhea , constipation, abdominal pain, pelvic pain, blood in urine or stool, dysuria, urinary frequency or urgency, lightheadedness, dizziness, headache, memory loss, loss of consciousness, rash, abnormal bruising or bleeding, imbalance, focal or generalized weakness, numbness or tingling in arms or legs, generalized arthralgias or myalgias, back or neck pain, or night sweats. The review of systems is otherwise negative other than for that already noted above, and at least 10 systems have been reviewed. Physical Exam Physical Exam: The patient is awake, alert and oriented 3, well developed and well nourished, normocephalic and atraumatic, lying in bed and in no acute distress. HEENT--PERRL, EOMI, mucous membranes and oropharynx dry. Neck--supple. No JVD. No bruits. Thyroid normal, trachea midline, no adenopathy. Heart--normal S1 and S2. No murmurs, rubs or gallops. Lungs--clear bilaterally, no respiratory distress, no accessory muscle use. Abdomen--normal bowel sounds and soft. Nontender. Nondistended, no hernias or masses, no organomegaly. Extremities--no cyanosis or clubbing. 1+ bilateral pretibial pitting edema. Dermatologic--normal skin turgor, normal color, no abnormal lymph nodes, no rash. Neurologic--cranial nerves II through XII grossly intact. Rheumatologic--normal range of motion. Psychiatric--normal affect. Results & Data Results & Data ([facility]) Vital Signs (Past 12 Hours) Vital Signs Temp Pulse Resp BP Pulse Ox 02/14/20 22:10 65 12 97 02/14/20 22:00 71 115/70 97 02/14/20 21:40 65 16 99 02/14/20 21:30 65 121/67 97 02/14/20 21:20 64 98 02/14/20 21:10 61 98 02/14/20 21:00 58 L 13 125/67 98 02/14/20 20:50 71 18 96 02/14/20 20:40 68 97 02/14/20 20:30 61 137/68 97 02/14/20 20:21 100 H 02/14/20 20:10 72 97 02/14/20 20:00 84 122/61 98 02/14/20 19:50 71 97 02/14/20 19:40 75 18 98 02/14/20 19:30 71 139/70 99 02/14/20 19:26 87 12 02/14/20 19:10 68 100 02/14/20 19:00 70 142/75 H 99 02/14/20 18:50 54 L 13 99 02/14/20 18:40 76 19 02/14/20 18:30 61 18 137/78 100 02/14/20 18:20 60 17 96 02/14/20 18:10 55 L 13 98 02/14/20 18:00 61 9 L 124/69 99 02/14/20 17:51 65 18 99 02/14/20 17:40 79 15 02/14/20 17:30 66 14 128/69 98 02/14/20 17:20 83 17 02/14/20 17:10 74 12 98 02/14/20 17:00 77 21 129/79 98 02/14/20 16:50 85 21 97 02/14/20 16:41 99 02/14/20 16:40 83 14 99 02/14/20 16:37 87 14 151/83 H 99 02/14/20 16:36 85 15 98 02/14/20 16:29 98.2 F 100 H 18 170/82 H 97 Laboratory Results Laboratory Results WBC 6.36 K/uL (4.8-10.8) 02/14/20 16:41 RBC 4.40 M/uL (4.7-6.1) L 02/14/20 16:41 Hgb 15.6 g/dL (14.0-18.0) 02/14/20 16:41 Hct 45.3 % (42-52) 02/14/20 16:41 MCV 103.0 fL (80-100) H 02/14/20 16:41 MCH 35.5 pg (25-34) H 02/14/20 16:41 MCHC 34.4 g/dL (32-36) 02/14/20 16:41 RDW Std Deviation 49.1 fL (36.4-46.3) H 02/14/20 16:41 RDW Coeff of Chris 13.1 % (11.5-14.5) 02/14/20 16:41 Plt Count 212 K/uL (130-400) 02/14/20 16:41 MPV 9.6 fL (7.4-10.4) 02/14/20 16:41 Immature Gran % (Auto) 0.5 % 02/14/20 16:41 Neut % (Auto) 40.7 % 02/14/20 16:41 Lymph % (Auto) 46.1 % 02/14/20 16:41 Giles % (Auto) 11.6 % 02/14/20 16:41 Eos % (Auto) 0.9 % 02/14/20 16:41 Baso % (Auto) 0.2 % 02/14/20 16:41 Neut # (Auto) 2.59 K/uL (1.4-6.5) 02/14/20 16:41 Lymph # (Auto) 2.93 K/uL (1.2-3.4) 02/14/20 16:41 Giles # (Auto) 0.74 K/uL (0.11-0.59) H 02/14/20 16:41 Eos # (Auto) 0.06 K/uL (0-0.5) 02/14/20 16:41 Baso # (Auto) 0.01 K/uL (0-0.2) 02/14/20 16:41 Immature Gran # (Auto) 0.03 K/uL (0.00-0.02) H 02/14/20 16:41 PT 10.9 Seconds (9.0-12.0) 02/14/20 17:15 INR 1.0 (0.9-1.1) 02/14/20 17:15 APTT 26.8 Seconds (21.0-31.0) 02/14/20 17:15 PTT Ratio 1.0 02/14/20 17:15 D-Dimer 700 ug/L FEU (0-500) H* 02/14/20 17:15 Sodium 140 mmol/L (136-145) 02/14/20 16:41 Potassium 3.5 mmol/L (3.5-5.1) 02/14/20 16:41 Chloride 107 mmol/L (98-107) 02/14/20 16:41 Carbon Dioxide 26 mmol/L (21-32) 02/14/20 16:41 Anion Gap 8.0 (3-11) 02/14/20 16:41 BUN 16 mg/dl (7-18) 02/14/20 16:41 Creatinine 1.16 mg/dl (0.6-1.4) 02/14/20 16:41 Est Cr Clr Drug Dosing 60.9 ml/min 02/14/20 16:41 Est GFR ( Amer) 74.6 02/14/20 16:41 Est GFR (Non-Af Amer) 64.3 02/14/20 16:41 BUN/Creatinine Ratio 14.1 (10-20) 02/14/20 16:41 Glucose 102 mg/dl (70-99) H 02/14/20 16:41 Calcium 8.8 mg/dl (8.5-10.1) 02/14/20 16:41 Total Bilirubin 0.8 mg/dl (0.2-1) 02/14/20 16:41 AST 33 U/L (15-37) 02/14/20 16:41 ALT 36 U/L (12-78) 02/14/20 16:41 Alkaline Phosphatase 122 U/L (45-117) H 02/14/20 16:41 Troponin I < 0.015 ng/ml (0-0.045) 02/14/20 22:49 Total Protein 7.2 gm/dl (6.4-8.2) 02/14/20 16:41 Albumin 3.3 gm/dl (3.4-5.0) L 02/14/20 16:41 Globulin 3.9 gm/dl (2.5-4.0) 02/14/20 16:41 Albumin/Globulin Ratio 0.9 (0.9-2) 02/14/20 16:41 Lipase 146 U/L (73-393) 02/14/20 16:41 Diagnostic Findings [place], [place] [phone] XRay Report Patient: WERNER JERNIGAN Date: 02/14/20 MR#: [id number]: [address] AMELIA HARDIN Acct ID:[id number]: Date: [address] [place] [address] Zip: [place] [address] Age: 69Location: ED Sex: MRoom/Bed: Att Phy:Diagnosis: CHEST PAIN Heather Phy: Heather Frazier MDService Date: 02/14/20 Fam Phy:Interpreting Phy: Augustus Cobian MD Admit Phy: Ordering Phy: Ant Woods DO cc: ~ XR chest 1V portable HISTORY: Atypical Chest Pain COMPARISON: Chest 02/04/2020. FINDINGS: Mild diffuse interstitial thickening which has improved. The heart is normal in size. No pleural effusions. No pneumothorax. No new focal lung consolidations. No evidence for pulmonary edema. IMPRESSION: Improvement in the mild interstitial thickening. No new focal lung consolidations to suggest pneumonia. ACT 112: Negative or not required by law. Electronically signed by: Augustus Cobian M.D. 02/14/2020 5:08 PM Dictated: 02/14/201705 Transcribed: 02/14/20 170 [place], [place] [phone] CT Scan Report Patient: WERNER JERNIGAN Date: 02/14/20 MR#: [id number]: [address] AMEL[address] H[address]IN Acct ID:[id number]: Date: 1950[facility] Zip: [place] [address] Age: 69Location: ED Sex: MRoom/Bed: Att Phy:Diagnosis: CHEST PAIN Heather Phy: Heather Frazier MDService Date: 02/14/20 Fam Phy:Interpreting Phy: Augustus Cobian MD Admit Phy: Ordering Phy: Ant Woods DO cc: ~ CHEST CTA for PULMONARY ARTERIES CT DOSE: 347.01 mGy.cm HISTORY: Shortness of breath. Atypical chest pain. TECHNIQUE: Multiaxial CT images of the chest were performed following the intravenous administration of contrast to evaluate the pulmonary arteries. Maximal intensity projection images were also obtained. A dose lowering technique was utilized adhering to the principles of ALARA. COMPARISON STUDY: Chest 02/14/2020. FINDINGS: Normal caliber thoracic aorta with no evidence for dissection. The heart is normal in size. No pleural or pericardial effusions. No filling defects within the pulmonary arteries to suggest pulmonary embolus. Limited views of the upper abdomen demonstrate normal liver, spleen, and adrenal glands. The esophagus is normal in caliber. No mediastinal or hilar lymphadenopathy. No suspicious lytic or blastic osseous lesions. No pneumothorax. The central airways are patent. There is mild bronchiectasis. A 4 mm calcified granuloma within the base of the left lower lobe on image 17. A 4 mm nodule within the left lower lobe on image 108. A 4 mm groundglass nodule within the left lung apex on image 232. Nodular densities within the right lung apex may represent areas of scarring. Dominant nodule within the right lung apex on image 222 measures 5 mm. Peripheral subpleural reticular densities are noted. IMPRESSION: 1. No evidence for pulmonary embolus. 2. Subpleural reticular densities and mild bronchiectasis are noted. This favors a chronic initial lung disease. 3. A few scattered subcentimeter pulmonary nodules as described above the largest in the right lung apex measuring 5 mm. Please refer to the chart below for recommended follow-up. Please refer to below summary of Fleischner criteria recommendations for follow- up of incidental CT nodules (Horace Hernandez, Guidelines for management of small pulmonary nodules detected on CT scans: A statement from the Fleischner Society, Radiology 237: [phone].) SOLID NODULES Solitary nodule size: <6 mm * Low risk patients: no follow-up needed * high risk patients: optional CT at 12 months Solitary nodule size: 6-8 mm * Low risk patients: follow-up at 6-12 months, then consider further follow-up at 18-24 months * high risk patients: initial follow-up CT at 6-12 months and then at 18-24 months if no change Solitary nodule size: >8 mm * either low or high risk patients - consider follow-up CT at 3 months, and/or CT-PET, and/or biopsy Multiple nodules size: <6 mm * Low risk patients: no routine follow-up * high risk patients: optional CT at 12 months Multiple nodules size: 6-8 mm * Low risk patients: follow-up at 3-6 months, then consider further follow-up at 18-24 months * high risk patients: follow-up at 3-6 months, then at 18-24 months if no change Multiple nodules size: >8 mm * Low risk patients: follow-up at 3-6 months, then consider further follow-up at 18-24 months * high risk patients: follow-up at 3-6 months, then at 18-24 months if no change Note: newly detected indeterminate nodule in persons 35 years of age or older. * Low risk patients: minimal or absent history of smoking and/or other known risk factors * high risk patients: history of smoking or of other known risk factors (e.g. first degree relative with lung cancer, or exposure to asbestos, radon, uranium) * if a nodule up to 8 mm is partly solid or is ground glass further follow-up is required after 24 months to exclude possible slow growing adenocarcinoma (JS) SUBSOLID NODULES Solitary pure ground-glass nodule * nodule size <6 mm - no CT follow-up required * nodule size >=6 mm - follow-up CT at 6-12 months, then every 2 years until 5 years Solitary part-solid nodule * nodule size <6 mm - no CT follow-up required * nodule size >=6 mm - follow-up CT at 3-6 months. If unchanged, and solid component remains <6 mm, then annual follow-up for 5 years Multiple subsolid nodules * nodule size <6 mm - follow-up CT at 3-6 months, consider further follow-up at 2 and 4 years if stable * nodule size >=6 mm - follow-up CT at 3-6 months, subsequent management based on the most suspicious nodule(s) ACT 112: Negative or not required by law. Electronically signed by: Augustus Cobina M.D. 02/14/2020 7:35 PM Dictated: 02/14/201925 Transcribed: 02/14/201925 Code Status & VTE Plan Code Status Full code VTE Prophylaxis Plan VTE Prophylaxis will be ordered: Yes PG Care Time/CCT Total # of Minutes Spent Total Time Spent with Patient: Total time spent is greater than 50% in coordination of care (as documented) at patient's floor/unit and/or counseling patient: Coding Level of Care Code 30118 [facility] Care - Level 3 Diagnoses Chest pain R07.9 Chest pain type: unspecified GERD without esophagitis K21.9 Bilateral edema of lower extremity R60.0 Pulmonary nodules/lesions, multiple R91.8 (1) Chest pain Chest pain type: unspecified Qualified Code(s): R07.9 - Chest pain, unspecified
[2020-02-14] MEDS ORDERED: ONDANSETRON INJ 2 MG/ML 2 ML VIAL IV PRN (22:42)
[2020-02-14] MEDS ORDERED: NITROGLYCERIN SL 0.4 MG/TAB TAB SL PRN (22:42)
[2020-02-14] MEDS ORDERED: ALUMINUM/MAGNESIUM SUSP 30 ML UDC PO PRN (22:42)
[2020-02-14] MEDS ORDERED: MAGNESIUM HYDROXIDE SUSP 30 ML UDC PO PRN (22:42)
[2020-02-14] MEDS ORDERED: ACETAMINOPHEN 325 MG TAB PO PRN (22:42)
[2020-02-15 07:26] LABS: Basophils # (auto) 0.01 K/uL (0-0.2); Basophils % (auto) 0.2 %; Eosinophils # (auto) 0.08 K/uL (0-0.5); Eosinophils % (auto) 1.8 %; Hematocrit (blood only) 43.4 % (42-52); Hemoglobin 14.6 g/dL (14.0-18.0); Immature Granulocytes # (auto) 0.03 K/uL (0.00-0.02); Immature Granulocytes % (auto) 0.7 %; Lymphocytes % (auto) 35.2 %; Mean Corpuscular Hemoglobin 35.1 pg (25-34); Mean Corpuscular Hgb Conc 33.6 g/dL (32-36); Mean Corpuscular Volume 104.3 fL (80-100); Mean Platelet Volume 9.6 fL (7.4-10.4); Monocytes # (auto) 0.71 K/uL (0.11-0.59); Monocytes % (auto) 15.6 %; Neutrophils # (auto) 2.12 K/uL (1.4-6.5); Neutrophils % (auto) 46.5 %; Platelet Count 199 K/uL (130-400); RDW Coefficient of Variation 13.3 % (11.5-14.5); RDW Standard Deviation 50.6 fL (36.4-46.3); Red Blood Count 4.16 M/uL (4.7-6.1); White Blood Count 4.55 K/uL (4.8-10.8)
[2020-02-15 08:03] LABS: Albumin Level 2.9 gm/dl (3.4-5.0); BUN Creatinine Ratio 15.2 (10-20); Blood Urea Nitrogen 13 mg/dl (7-18); Calcium 8.6 mg/dl (8.5-10.1); Carbon Dioxide 28 mmol/L (21-32); Chloride 108 mmol/L (98-107); Creatinine Clr Calc Pharmacy 81.3 ml/min; Est GFR (African American) 102.8; Est GFR (Non-African American) 88.7; Glucose 83 mg/dl (70-99); Magnesium 2.2 mg/dl (1.8-2.4); Sodium 141 mmol/L (136-145)
[2020-02-15 08:08] LABS: Phosphorus 2.7 mg/dl (2.5-4.9); Troponin I < 0.015 ng/ml (0-0.045)
--- NOTE | 2020-02-15 11:16 | XCELERA ---
[id number]
--- NOTE | 2020-02-15 12:45 | Cardiology Consultation ---
Date of Consultation February 15, 2020 Assessment & Plan (1) Chest pain: The patient has both typical and atypical features of chest discomfort. However, the chronicity and extended duration of his symptoms without elevation in biomarkers are other objective signs of ischemia speak against coronary disease as the etiology. He reports having near constant sensation of pressure. His symptoms are not reliably reproduced by any specific activity. I think would be reasonable to perform some provocative testing such as exercise echocardiography. Given the absence of biomarker elevation in the overall low risk associated with his presentation this can be deferred to the outpatient s etting. He should continue standard cardiovascular risk factor modification. (2) Mitral regurgitation: Mild. This can be followed over time. Not associated with his current symptoms. History of Present Illness Reason for Consultation: Chest pain Requesting Physician: Carlos Attending Physician: Justice Gonzalez History of Present Illness The patient is a 61-year-old gentleman without a known history of cardiac disease who has been experiencing some symptoms of chest pressure for few months. Patient states that this is a sensation of heaviness in the chest area. It provides a sensation of some difficulty breathing at times. It is fairly constant but waxes and wanes in severity. Yesterday the patient was performing some mild activity he felt like the symptoms got worse. Symptom itself became more intense. Was associated with some mild pleuritic symptoms. The patient discontinued activity with some improvement in the symptoms but this symptom itself never resolved. It waxed and waned in severity for few hours prior to presenting to the emergency room. Patient was given some nitroglycerin, ondansetron and antacids with eventual resolution in his symptoms. However, this morning the patient's symptoms returned. He reports being an active individual who is accustomed to mild to moderate activity. This symptoms described while fairly constant did not appear to be exacerbated with activity reliably. He also has symptoms of indigestion at times. His appears to be more epigastric in nature and described as a burning. Eating generally improves the patient's symptoms of chest pressure. He does not appear to have difficulty swallowing. No nausea or vomiting recently. The patient was tried on prednisone and inhaled beta agonists. He states that the prednisone did relieve his symptoms for few days. The beta agonist not seem to have much effect. Allergies Allergy/AdvReac Type Severity Reaction Status Date / Time lactose AdvReac Intermediate Abdominal Verified 02/14/20 18:45 Pain Home Medications Home Medications Medication Instructions Recorded Confirmed Type albuterol sulfate 90 mcg/actuation 2 puff INHALATION 6XD PRN #6.7 g 02/04/20 02/14/20 Rx aerosol inhaler calcium carbonate-vitamin D3 1 tab PO HS 02/14/20 02/14/20 History [Caltrate 600 plus D] cholecalciferol (vitamin D3) 50 mcg PO HS 02/14/20 02/14/20 History [Vitamin D3] omeprazole 40 mg PO HS 02/14/20 02/14/20 History Patient History Medical History Acute sinus infection GERD (gastroesophageal reflux disease) Gout History of actinic keratoses History of asthma A CHILD History of squamous cell carcinoma in situ of skin Osteoarthritis Peripheral neuropathy Prostate cancer Seasonal allergies Surgical History History of anesthesia reaction "SENSITIVE TO IT" History of arthroscopy LEFT KNEE History of cataract surgery RT/LEFT History of colonoscopy History of prostatectomy History of vasectomy Hx of umbilical hernia repair (02/25/19) Laparoscopic Umbilical Hernia Repair Dr. Vera 02/25/19 Family History Father Prostate cancer Brother Myocardial infarction Other Bladder cancer Nephrolithiasis Denies family history of Ovarian cancer Breast cancer Bleeding disorder Colorectal cancer Social History Smoking Status: Never smoker Cigarettes Per Day: CIGAR OCCASIONALLY THROUGHOUT YEAR; Second Hand Exposure: No; Do You Dip or Chew Tobacco: No; Tobacco Cessation Education Requested by Patient: No Hx Alcohol Use: Yes Alcohol type: beer Hx Substance Use: No Preferred Language: [place]an Communication Ability: Effective Executive Relations Specialist Required: No Beliefs That Will Affect Care: None marital status: Current Living Situation: Spouse Current Living Situation Comment: House Other Information That Helps Us Care for You: No Feels Safe at Home: Yes Safety Concerns: Feels Safe At This Time Seatbelt Use: always Sunscreen Use: Yes Review of Systems Review of Systems: All systems reviewed & are unremarkable except as noted in HPI & below No recent constitutional symptoms such as fevers or chills. Physical Exam Physical Exam: The patient is alert and oriented. Mood and affect appeared normal. He answered all questions appropriately. HEENT: Pupils are equal and reactive to light and accommodation. Extraocular movements are intact. The sclerae are anicteric. Neuro: Cranial nerves intact Neck: Patient's neck is supple. He has palpable carotid pulses bilaterally without bruits on auscultation. There is no evidence of jugular venous distention. The thyroid is not enlarged. Lungs: Clear to auscultation bilaterally. He has good air movement without use of accessory muscles. No rales wheezes or rhonchi. Cardiac: Heart demonstrates a regular rate and rhythm. Normal S1 and S2. No murmurs on examination. Pulses: The patient has palpable radial pulses bilaterally that are equal in intensity Extremities: There was no evidence of hypoperfusion. There is no cyanosis or clubbing. There is no edema. Skin: I did not appreciate any rashes on examination today. Results & Data ([facility]) Vital Signs (Past 12 Hours) Vital Signs Temp Pulse Resp BP Pulse Ox 02/15/20 11:23 36.8 C 55 L 18 145/74 H 99 02/15/20 08:55 36.8 C 74 18 129/65 96 02/15/20 03:46 36.3 C L 49 L 16 134/69 98 Laboratory Results Abnormal Lab Results 02/14/20 02/14/20 02/14/20 16:41 16:41 16:41 WBC 6.36 RBC 4.40 L Hgb 15.6 Hct 45.3 MCV 103.0 H MCH 35.5 H MCHC 34.4 RDW Std Deviation 49.1 H RDW Coeff of Chris 13.1 Plt Count 212 MPV 9.6 Immature Gran % (Auto) 0.5 Neut % (Auto) 40.7 Lymph % (Auto) 46.1 [place] % (Auto) 11.6 Eos % (Auto) 0.9 Baso % (Auto) 0.2 Neut # (Auto) 2.59 Lymph # (Auto) 2.93 [place] # (Auto) 0.74 H Eos # (Auto) 0.06 Baso # (Auto) 0.01 Immature Gran # (Auto) 0.03 H PT Cancelled INR Cancelled APTT Cancelled PTT Ratio Cancelled D-Dimer Cancelled Sodium 140 Potassium 3.5 Chloride 107 Carbon Dioxide 26 Anion Gap 8.0 BUN 16 Creatinine 1.16 Est Cr Clr Drug Dosing 60.9 Est GFR ( Amer) 74.6 Est GFR (Non-Af Amer) 64.3 BUN/Creatinine Ratio 14.1 Glucose 102 H Calcium 8.8 Phosphorus Magnesium Total Bilirubin 0.8 AST 33 ALT 36 Alkaline Phosphatase 122 H Troponin I < 0.015 Total Protein 7.2 Albumin 3.3 L Globulin 3.9 Albumin/Globulin Ratio 0.9 Lipase 146 02/14/20 02/14/20 02/15/20 17:15 22:49 06:57 WBC 4.55 L RBC 4.16 L Hgb 14.6 Hct 43.4 MCV 104.3 H MCH 35.1 H MCHC 33.6 RDW Std Deviation 50.6 H RDW Coeff of Chris 13.3 Plt Count 199 MPV 9.6 Immature Gran % (Auto) 0.7 Neut % (Auto) 46.5 Lymph % (Auto) 35.2 [place] % (Auto) 15.6 Eos % (Auto) 1.8 Baso % (Auto) 0.2 Neut # (Auto) 2.12 Lymph # (Auto) 1.60 [place] # (Auto) 0.71 H Eos # (Auto) 0.08 Baso # (Auto) 0.01 Immature Gran # (Auto) 0.03 H PT 10.9 INR 1.0 APTT 26.8 PTT Ratio 1.0 D-Dimer 700 H* Sodium Potassium Chloride Carbon Dioxide Anion Gap BUN Creatinine Est Cr Clr Drug Dosing Est GFR ( Amer) Est GFR (Non-Af Amer) BUN/Creatinine Ratio Glucose Calcium Phosphorus Magnesium Total Bilirubin AST ALT Alkaline Phosphatase Troponin I < 0.015 Total Protein Albumin Globulin Albumin/Globulin Ratio Lipase 02/15/20 06:57 WBC RBC Hgb Hct MCV MCH MCHC RDW Std Deviation RDW Coeff of Chris Plt Count MPV Immature Gran % (Auto) Neut % (Auto) Lymph % (Auto) [place] % (Auto) Eos % (Auto) Baso % (Auto) Neut # (Auto) Lymph # (Auto) [place] # (Auto) Eos # (Auto) Baso # (Auto) Immature Gran # (Auto) PT INR APTT PTT Ratio D-Dimer Sodium 141 Potassium 4.0 Chloride 108 H Carbon Dioxide 28 Anion Gap 5.0 BUN 13 Creatinine 0.87 Est Cr Clr Drug Dosing 81.3 Est GFR ( Amer) 102.8 Est GFR (Non-Af Amer) 88.7 BUN/Creatinine Ratio 15.2 Glucose 83 Calcium 8.6 Phosphorus 2.7 Magnesium 2.2 Total Bilirubin AST ALT Alkaline Phosphatase Troponin I < 0.015 Total Protein Albumin 2.9 L Globulin Albumin/Globulin Ratio Lipase Diagnostic Findings Echocardiogram performed today revealed preserved LV systolic function without regional wall motion abnormalities. Mild mitral regurgitation. X-ray and chest CT a were performed. Some interstitial markings. No other acute cardiopulmonary process. PG Care Time/CCT Total # of Minutes Spent Total Time Spent with Patient: Total time spent is greater than 50% in coordination of care (as documented) at patient's floor/unit and/or counseling patient: Coding Level of Care Code 66370 OBS Care - Level 3 Diagnoses Chest pain R07.9 Chest pain type: unspecified Mitral regurgitation I34.0 (1) Chest pain Chest pain type: unspecified Qualified Code(s): R07.9 - Chest pain, unspecified
--- NOTE | 2020-02-15 13:52 | Discharge Summary ---
Date of Service February 15, 2020 Admission HPI Per Admitting Provider The patient is a 69-year-old male with a past medical history including esophageal foreign body, globus sensation, recurrent abdominal pain, prostate cancer, atrial fibrillation, colon diverticulosis, GERD without esophagitis, squamous cell carcinoma of skin, chronic venous insufficiency and vitamin D deficiency. He presents with the above symptoms. He denies any recent travels or sick exposures including to [place]. Principal Diagnosis chest pain Discharge Exam The patient is awake, alert and oriented 3, well developed and well nourished, normocephalic and atraumatic, lying in bed and in no acute distress. HEENT--PERRL, EOMI, mucous membranes and oropharynx dry. Neck--supple. No JVD. No bruits. Thyroid normal, trachea midline, no adenopathy. Heart--normal S1 and S2. No murmurs, rubs or gallops. Lungs--clear bilaterally, no respiratory distress, no accessory muscle use. Abdomen--normal bowel sounds and soft. Nontender. Nondistended, no hernias or masses, no organomegaly. Extremities--no cyanosis or clubbing. 1+ bilateral pretibial pitting edema. Dermatologic--normal skin turgor, normal color, no abnormal lymph nodes, no rash. Neurologic--cranial nerves II through XII grossly intact. Rheumatologic--normal range of motion. Psychiatric--normal affect. Discharge Data Allergies Allergy/AdvReac Type Severity Reaction Status Date / Time lactose AdvReac Intermediate Abdominal Verified 02/21/20 11:30 Pain Consultations 02/14/20 20:25 ED Decision to Admit Stat 02/14/20 22:42 Consult Case Management - Discharge Planning Routine 02/15/20 10:46 Consult Cardiology Routine Ordered Studies 02/14/20 18:17 CT angio chest PE protocol Stat Hospital Course (1) Chest pain: Chest pain/history of atrial fibrillation- The patient will be admitted to telemetry for serial cardiac enzymes, serial EKG's, cardiac rhythm monitoring and a 2-D echocardiogram with Dopplers. Initial troponin is negative Denies any symptoms of palpitations. Aspirin 81 mg daily No history of stress testing. Appreciate input from cardio: The patient has both typical and atypical features of chest discomfort. However, the chronicity and extended duration of his symptoms without elevation in biomarkers are other objective signs of ischemia speak against coronary disease as the etiology. He reports having near constant sensation of pressure. His symptoms are not reliably reproduced by any specific activity. I think would be reasonable to perform some provocative testing such as exercise echocardiography. Given the absence of biomarker elevation in the overall low risk associated with his presentation this can be deferred to the outpatient setting. He should continue standard cardiovascular risk factor modification. (2) GERD without esophagitis: Continue omeprazole 40 mg p.o. daily If cardiac work-up is negative, then further GI work-up may be needed in the outpatient setting (3) Bilateral edema of lower extremity: Normal albumin. Upon questioning patient does report frequent intake of excessive amounts of salt. No echocardiogram or stress test reports. Reassess examination in a.m. and after appropriate laboratories and echocardiogram performed. Advised to decrease sodium intake (4) Pulmonary nodules/lesions, multiple: CTA chest describes chronic interstitial lung disease and pulmonary nodules. Patient has no signs of respiratory infection. We will need to have serial CT examinations per protocol. He was given an albuterol HFA by his outpatient PCP, without improvement in symptoms. If cardiac work-up is negative, further pulmonary work-up may be needed in the outpatient setting Total Time Total Time Spent Total Time Spent (In Minutes): 32 Total Time Includes: Examination of the Patient, Discharge Planning and Medicati on Reconciliation Discharge Plan Discharge Items Patient Disposition: Home - Self-Care Reason For Visit: CHEST PAIN, SOB Discharge Diagnosis: chest pain Condition on Discharge: Good Activity: Resume your previous activity Non-emergency contact: Primary Care Provider Call non-emergency contact if: you have any medication questions Follow-up/Referrals: Heather Frazier MD [Primary Care Provider] - 02/21/20 11:30 am Diet: Regular Addtl Attending Provider Instructions: You have been hospitalized for an acute medical problem. During your stay at [facility], we have made an effort to correct the problem that brought you to the hospital while keeping you as comfortable as possible. Medications were used to bring your condition under control and your discharge instructions will include directions for any medications you should take after leaving the hospital. Please make sure you see your Primary Care Provider as part of your follow up plan. You can followup with your PCP in 1-2 weeks and schedule an outpatient stess test. Pending Studies at Discharge: No Stand-Alone Forms: [facility], Smoking Cessation Medications and DC Order Prescriptions: Continued albuterol sulfate 90 mcg/actuation HFA aerosol inhaler 2 puff inhalation 6XD PRN (Reason: shortness of breath or wheezing) Qty: 6.7 RF: 0 cholecalciferol (vitamin D3) [Vitamin D3] 50 mcg (2,000 unit) Capsule 50 mcg PO HS RF: 0 Caltrate 600 plus D 600 mg (1,500 mg)-800 unit Tablet,Chewable 1 tab PO HS RF: 0 omeprazole 40 mg capsule,delayed release(DR/EC) 40 mg PO HS RF: 0 Discharge Orders: Discharge Order (Routine); Ordered 02/15/20 Ordered By: Justice Morfin/Other Patient Handouts: Communicating About Pain Admission Data Admit Date/Time: 02/14/20 22:01 Attending Provider: Justice Gonzalez Admit Provider: Eugene Gutierrez Primary Care Provider: Heather Frazier Other Providers: Eugene Gutierrez ; Vick Malcolm Other Interventions: Discharge Summary Assessment (RN) Last Done: 02/15/20 14:16 Coding Level of Care Code 61098 OBS Care - Discharge Diagnoses Chest pain R07.9 Chest pain type: unspecified GERD without esophagitis K21.9 Bilateral edema of lower extremity R60.0 Pulmonary nodules/lesions, multiple R91.8
--- NOTE | 2020-02-15 16:46 | Electrocardiogram Report ---
Test Reason : Blood Pressure : / mmHG Vent. Rate : 094 BPM Atrial Rate : 094 BPM P-R Int : 150 ms QRS Dur : 104 ms QT Int : 370 ms P-R-T Axes : 061 061 040 degrees QTc Int : 462 ms Normal sinus rhythm Incomplete right bundle branch block Abnormal ECG When compared with ECG of 19-FEB-2019 11:33, No significant change was found Confirmed by Marco Malcolm ([id number]) on 02/15/2020 4:46:10 PM Referred By: REFERRED SELF Confirmed By:Salbador Malcolm
[2020-02-15] MEDS ORDERED: CHOLECALCIFEROL 1,000 UNITS 25 MCG TAB PO SCH (21:00)
[2020-02-15] MEDS ORDERED: PANTOprazole 40 MG TAB PO SCH (21:00)
[2020-02-15] MEDS ORDERED: CALCIUM 600MG + VIT D 400 IU TAB PO SCH (21:00)
== END 2020-02-15 14:42 | disposition home or self-care (01) ==
LOC: ED 16:26 → 2S 16:26 → SUATTDRO 22:01 → 2S 22:15

== ENCOUNTER 2022-06-10 01:25 | Observation (INO) ==
[2022-06-10] MEDS ORDERED: NITROGLYCERIN 2% OINTMENT 30GM TUBE EXT STA (01:36)
[2022-06-10] MEDS ORDERED: SODIUM CHLORIDE 0.9% 500 ML IV STA (01:36)
[2022-06-10] MEDS ORDERED: ASPIRIN CHEW 324 MG PO STA (01:36)
--- NOTE | 2022-06-10 01:42 | Emergency Department Note ---
History of Present Illness General Chief complaint: Chest Pain Stated complaint: GREGORY,CHEST PAIN,NAUSEA Time Seen by Provider: 06/10/22 01:30 History of Present Illness Maximum Pain Intensity: 5 This is a 71-year-old male presenting to the emergency department for evaluation of left-sided chest pain/heaviness that began about 90 minutes prior to arrival. The patient states that he has had similar symptoms off and on for the past few nights, that he was able to relieve with ibuprofen. He did not take anything [id number] tonight for symptoms. The patient has an old history of A. fib but is not medicated for this. He states that his brother had a heart attack at 66 years old, and his mom had "leaky valves". The patient has not had significant fevers or chills the past few days. He did have COVID a few months ago. He is following with his PCP for fatigue symptoms. The patient did have an echocardiogram about 10 months ago that was essentially normal. He rates his current discomfort a 5/10. Home Medications Medication Instructions Recorded Confirmed Type albuterol sulfate 90 mcg/actuation 2 puff inhalation 6XD PRN 02/04/20 06/08/22 Rx aerosol inhaler shortness of breath or wheezing #6.7 grams calcium carbonate 600 mg-vitamin 1 tab PO QPM 02/14/20 06/10/22 History D3 20 mcg (800 unit) chewable tablet (Caltrate 600 plus D) cholecalciferol (vitamin D3) 50 50 mcg PO QPM 02/14/20 06/10/22 History mcg (2,000 unit) capsule (Vitamin D3) Flutter Valve #1 ea 09/09/21 06/08/22 Rx budesonide-formoterol HFA 80 2 puff inhalation Q12H #10.2 grams 12/21/2104/20 Rx mcg-4.5 mcg/actuation aerosol inhaler (Symbicort) omeprazole 40 mg capsule,delayed 40 mg PO QPM #90 caps 05/17/22 06/10/22 Rx release Allergies Allergy/AdvReac Type Severity Reaction Status Date / Time lactose AdvReac Intermediate Abdominal Verified 06/08/22 09:09 Pain Past Med/Surg History Medical History Adenocarcinoma of prostate Atrial fibrillation 1 episode, dx after prostatectomy. converted on his own with medication -- no current issues. Bronchiectasis without complication GERD (gastroesophageal reflux disease) Gout History of prostate cancer (~2014) History of squamous cell carcinoma in situ of skin Interstitial lung disease pt denies -- states not fully diagnosed Interstitial lung disease Night sweats JESSI (obstructive sleep apnea) cpap nightly Osteoarthritis Peripheral neuropathy bilateral feet Pulmonary nodules Seasonal allergies Shortness of breath with exercise Surgical History History of anesthesia reaction "SENSITIVE TO IT" History of arthroscopy LEFT KNEE History of cataract surgery RT/LEFT History of colonoscopy History of esophagogastroduodenoscopy (EGD) History of prostatectomy History of vasectomy Hx of umbilical hernia repair (02/25/19) Laparoscopic Umbilical Hernia Repair Dr. Vera 02/25/19 Family History Father Prostate cancer Brother Myocardial infarction Other Bladder cancer Cancer Heart disease Lung cancer Nephrolithiasis No family history of adverse response to anesthesia Tuberculosis Denies family history of Ovarian cancer Breast cancer Bleeding disorder Colorectal cancer Social History Smoking Status: Never smoker Cigarettes Per Day: CIGAR OCCASIONALLY THROUGHOUT YEAR; Second Hand Exposure: No; Hx Alcohol Use: Yes Alcohol type: beer Alcohol Intake Frequency: 2-4 x/Month Hx Substance Use: No Preferred Language: Setswana Communication Ability: Effective Visual Impairment: No Limitations On Call Required: No Beliefs That Will Affect Care: None marital status: Current Living Situation: Spouse current occupational status: retired Feels Safe at Home: Yes caffeine: Yes Dental Care, Regularly: Yes Physical Activity Frequency: Daily Seatbelt Use: always Sunscreen Use: Yes Assistive Devices: Glasses Review of Systems A total of 10 systems reviewed and were otherwise negative Physical Exam Vital Signs Vital Signs - 24 hr 06/10/22 03:00 06/10/22 03:30 06/10/22 04:00 Pulse Rate 59 L 62 55 L Pulse Rate from SpO2 Sensor 59 L 63 55 L Respiratory Rate 18 17 18 Blood Pressure 123/66 119/76 122/72 Blood Pressure Mean 85 90 88 Pulse Oximetry 95 97 98 VITALS: Vitals are noted on the nurse's note and reviewed by myself. Vital signs stable. GENERAL: Well-developed, well-nourished, white male, who is in no acute distress and resting comfortably. Patient is cooperative with the examination. HEAD: Normocephalic atraumatic. EARS: External ear normal. External auditory canals clear, tympanic membranes pearly donaldson without erythema or effusion bilaterally. EYES: Pupils equal round and reactive to light and accommodation. Conjunctivae without injection, sclerae without icterus. Extraocular movements intact. NOSE: Patent, turbinates without inflammation or discharge. MOUTH: Mucous membranes moist. Tonsils are not enlarged. Pharynx without erythema, blood, or exudate. Uvula midline. Airway patent. NECK: Supple without nuchal rigidity. No lymphadenopathy. No thyromegaly. Cervical spine is nontender. HEART: Regular rate and rhythm without murmurs gallops or rubs. LUNGS: Clear to auscultation bilaterally without wheezes, rales or rhonchi. No retractions or accessory muscle use. ABDOMEN: Positive normal bowel sounds x 4. Soft, nontender, without masses or organomegaly. No guarding or rebound tenderness. MUSCULOSKELETAL: No muscle atrophy, erythema, or edema noted. Full range of motion in all extremities. Course Administered Medications Discontinued Medications Aspirin (Aspirin Chew 324 Mg) 324 mg PO NOW STA Stop: 06/10/22 01:37 Last Admin: 06/10/22 01:43 Dose: 324 mg Documented By: NOMI Fluticasone/Vilanterol (Fluticasone/Vilanterol 100/25mcg 14 Puffs/Inhaler) 1 puffs INH DAILY NADIA Stop: 07/10/22 08:59 Last Admin: 06/10/22 10:09 Dose: 1 puffs Documented By: REBECCA Sodium Chloride (Nss) 500 mls @ 999 mls/hr IV .Q31M STA Stop: 06/10/22 02:06 Last Infusion: 06/10/22 02:18 Dose: 0 mls/hr Documented By: Admin: 06/10/22 01:44 Dose: 999 mls/hr Documented By: NOMI Nitroglycerin (Nitroglycerin 2% Ointment 30gm Tube) 1 inch EXT NOW STA Stop: 06/10/22 01:37 Last Admin: 06/10/22 01:43 Dose: 1 inch Documented By: NOMI Medical Decision Making Differential Diagnosis Differential diagnosis includes, but is not limited to: Myocardial infarction, dysrhythmia, pericarditis, pneumothorax, aortic aneurysm/dissection, DVT/PE, anxiety, GERD, PUD, electrolyte imbalance, thyroid disorder, pneumonia, bronchi tis, pancreatitis, and others Laboratory Data 06/10/22 01:38 06/10/22 01:38 Lab Results 06/10/22 06/10/22 06/10/22 Range/Units 01:38 01:38 01:45 WBC 6.66 (4.8-10.8) K/ul RBC 4.28 L (4.63-6.08) M/uL Hgb 15.5 (14.0-18.0) g/dl Hct 42.6 (40.1-51.0) % MCV 99.5 (80.0-100.0) fL MCH 36.2 H (25.0-34.0) pg MCHC 36.4 H (32.0-36.0) g/dL RDW Std Deviation 46.0 (36.4-46.3) fL RDW Coeff of Chris 12.5 (11.5-14.5) % Plt Count 207 (130-400) K/uL MPV 9.7 (9.4-12.4) fL Immature Gran % (Auto) 0.3 % Neut % (Auto) 39.5 % Lymph % (Auto) 44.3 % Smith % (Auto) 13.8 % Eos % (Auto) 1.5 % Baso % (Auto) 0.6 % Neut # (Auto) 2.63 (1.4-6.5) K/uL Lymph # (Auto) 2.95 (1.2-3.4) K/uL Smith # (Auto) 0.92 H (0.24-0.82) K/uL Eos # (Auto) 0.10 (0-0.50) K/uL Baso # (Auto) 0.04 (0-0.2) K/uL Immature Gran # (Auto) 0.02 (0.00-0.02) K/uL Sodium 139 (136-145) mmol/L Potassium 3.7 (3.5-5.1) mmol/L Chloride 104 (98-107) mmol/L Carbon Dioxide 28 (21-32) mmol/L Anion Gap 7 (3-11) BUN 15 (6-23) mg/dl Creatinine 0.91 (0.6-1.4) mg/dl Est Cr Clr Drug Dosing 75.5 ml/min Est GFR ( Amer) 98.6 ml/min Est GFR (Non-Af Amer) 85.1 ml/min BUN/Creatinine Ratio 16.5 (10-20) Glucose 101 H (70-99(Fasting)) mg/dl Calcium 9.2 (8.5-10.1) mg/dl Total Bilirubin 0.5 (0.2-1.0) mg/dl AST 32 (13-39) U/L ALT 33 (7-52) U/L Alkaline Phosphatase 138 H (34-104) U/L Troponin I High Sens 5.8 (0-20) pg/ml Total Protein 7.0 (6.0-8.3) gm/dl Albumin 4.0 (3.4-5.0) gm/dl Globulin 3.0 (2.5-4.0) gm/dl Albumin/Globulin Ratio 1.3 (0.9-2) Lipase 16 (11-82) U/L SARS-CoV-2, RNA, NAAT NEGATIVE (NEGATIVE) Imaging Data Radiologist's Impression: Chest X-Ray 06/10/22 01:36 SINGLE VIEW CHEST CLINICAL HISTORY: Atypical chest pain. FINDINGS: An AP, portable, upright chest radiograph is compared to chest x-ray and chest CT dated 07/07/2021. The heart is enlarged noting atherosclerotic calcification of the thoracic aorta. The pulmonary vasculature is noncongested. Chronic interstitial thickening and subpleural reticulation is similar to previous. No airspace consolidation or large pleural effusion is identified. Scarring/atelectasis is noted at the lung bases. No pneumothorax is seen. The skeletal structures are osteopenic. The bony thorax is grossly intact. IMPRESSION: Cardiomegaly with no acute cardiopulmonary abnormality. ACT 112: Negative or not required by law. Electronically signed by: Aden Hernandez M.D. 06/10/2022 9:58 AM ECG Data Attestation: I personally reviewed and interpreted this ECG as follows: Indication: + chest pain Additional Comments: Normal sinus rhythm @[address] elevation Possible Left atrial enlargement Incomplete right bundle branch block Borderline ECG When compared with ECG of 07-JUL-2021 08:49, No significant change was found MDM Narrative Physical exam and history were performed. Nursing notes, EMR, and Medication List were personally reviewed. No social concerns were identified as barriers to patients care. Patient appears to have chest discomfort and heaviness bringing him to the ER. IV access was established and labs were obtained. He was given aspirin and Nitropaste here in the ER. An order was placed for continuous cardiac monitoring. The monitor shows a rate of 68 with normal sinus rhythm. Patient's blood work is as above and was reviewed. He does not have a significantly elevated white blood cell count, gross anemia, bandemia, or significant electrolyte imbalance. Lipase and transaminases are not diagnostic. Troponin x1 is negative. Patient was reevaluated multiple times at the course of his stay. He seems to have had some improvement of symptoms after care here in the ER. I do have some concern that his symptoms may represent a cardiac process. [facility] the patient here in the ER. Please see their dictation for further patient course, plan, disposition. The chart was completed utilizing [employer] Speech Voice Recognition Software. Grammatical errors, random word insertions, pronoun errors, and incomplete sentences are an occasional consequence of this system due to software limitations, ambient noise, and hardware issues. Any formal questions or concerns about the content, text, or information contained within the body of this dictation should be directly addressed to the provider for clarification. . Impression & Plan Atypical chest pain Discharge Plan Visit Data Chief Complaint: Chest Pain Stated Complaint: GREGORY,CHEST PAIN,NAUSEA ED Provider: Rafy Espino ED Midlevel Provider: Brian Elias Discharge Problem: Atypical chest pain Patient Disposition: Admitted As Inpatient Condition: Good Discharge Instructions Interventions: ED Discharge Assessment Last Done: 06/10/22 04:51
[2022-06-10 01:51] LABS: Basophils # (auto) 0.04 K/uL (0-0.2); Basophils % (auto) 0.6 %; Eosinophils % (auto) 1.5 %; Hematocrit (blood only) 42.6 % (40.1-51.0); Hemoglobin 15.5 g/dl (14.0-18.0); Immature Granulocytes # (auto) 0.02 K/uL (0.00-0.02); Immature Granulocytes % (auto) 0.3 %; Lymphocytes # (auto) 2.95 K/uL (1.2-3.4); Lymphocytes % (auto) 44.3 %; Mean Corpuscular Hemoglobin 36.2 pg (25.0-34.0); Mean Corpuscular Hgb Conc 36.4 g/dL (32.0-36.0); Mean Corpuscular Volume 99.5 fL (80.0-100.0); Mean Platelet Volume 9.7 fL (9.4-12.4); Monocytes # (auto) 0.92 K/uL (0.24-0.82); Monocytes % (auto) 13.8 %; Neutrophils # (auto) 2.63 K/uL (1.4-6.5); Neutrophils % (auto) 39.5 %; Platelet Count 207 K/uL (130-400); RDW Coefficient of Variation 12.5 % (11.5-14.5); Red Blood Count 4.28 M/uL (4.63-6.08); White Blood Count 6.66 K/ul (4.8-10.8)
[2022-06-10 02:10] LABS: Albumin Globulin Ratio 1.3 (0.9-2); BUN Creatinine Ratio 16.5 (10-20); Bilirubin,Total 0.5 mg/dl (0.2-1.0); Calcium 9.2 mg/dl (8.5-10.1); Creatinine Clr Calc Pharmacy 75.5 ml/min; Est GFR (African American) 98.6 ml/min; Est GFR (Non-African American) 85.1 ml/min; Potassium 3.7 mmol/L (3.5-5.1)
[2022-06-10 02:16] LABS: Troponin I High Sensitivity 5.8 pg/ml (0-20)
--- NOTE | 2022-06-10 04:30 | History & Physical Report ---
Date of Service June 10, 2022 Assessment & Plan (1) Chest pain: Plan: 71yo male with history of ILD presents with episode of substernal chest discomfort and palpitations that woke him from sleep. Workup thus far is unremarkable to include normal electrolytes, troponin of 5.8, normal CXR and EKG. Patient with sinus bradycardia on telemetry, no arrhythmia. Chest pain has resolved. -Observation to medical -Trend troponin -Check Mg and PO4 -Check 2D echo -If workup is unrevealing may consider outpatient cardiac monitoring for possible arrhythmia (2) Palpitations: Plan: Episode of racing heart as above. Possible arrhythmia, ?AFib or SVT? -Check Mg and PO4 -TSH was normal 1.141 -Check 2D echo (3) Interstitial lung disease: Plan: Patient with ILD. Follows with Pulmonary. Stable. No O2 requirements -Continue Budesonide/Formoterol and Albuterol -Continue Flutter valve (4) GERD (gastroesophageal reflux disease): Plan: Chronic. Controlled -Protonix while inpatient F/E/N - Heplock. Electrolytes WNL. Regular diet as tolerated Ppx - Low risk for DVT, encourage ambulation Code - Full per discussion with patient Dispo - Observation to medical with telemetry History of Present Illness Primary Care Provider: Heather Frazier MD Chan Perez is a pleasant 71yo male with history of ILD for which he follows with Pulmonology and GERD presenting with episode of chest discomfort and palpitations. Patient woke from sleep on 06/10/21 at 12:00 with feeling of his heart racing, headache, substernal chest pressure and nausea. He got out of bed and walked around to try to get his symptoms to improve. He checked his heart rate and reports it was elevated for him, ranging 95-105. Chest pressure substernal tightness, non-pleuritic, non-radiating and non-exertional. Symptoms continued therefore he called a friend to drive him to the ER. Patient overall is active. He does report dizziness at times following exertion. He has not had exertional or post-exertional syncope nor exertional chest pain. He has stable SOB. Denies fever, chills, cough, abdominal pain, vomiting or diarrhea. He states that his heart rate can be slow at times in the 50's and fast into the 90's and 100's at times. He does have a remote history of atrial fibrillation which occurred post- operatively. To his knowledge he has had no recurrence of arrhythmia. No medication for AF. In the ER he is afebrile, sinus bradycardia with HR of 59, BP stable ER Course: ASA Nitro Allergies Allergy/AdvReac Type Severity Reaction Status Date / Time lactose AdvReac Intermediate Abdominal Verified 06/08/22 09:09 Pain Home Medications Medication Instructions Recorded Confirmed Type albuterol sulfate 90 mcg/actuation 2 puff inhalation 6XD PRN 02/04/20 06/08/22 Rx aerosol inhaler shortness of breath or wheezing #6.7 grams calcium carbonate 600 mg-vitamin 1 tab PO QPM 02/14/20 06/08/22 History D3 20 mcg (800 unit) chewable tablet (Caltrate 600 plus D) cholecalciferol (vitamin D3) 50 50 mcg PO QPM 02/14/20 06/08/22 History mcg (2,000 unit) capsule (Vitamin D3) Flutter Valve #1 ea 09/09/21 06/08/22 Rx budesonide-formoterol HFA 80 2 puff inhalation Q12H #10.2 grams 12/21/21 06/08/22 Rx mcg-4.5 mcg/actuation aerosol inhaler (Symbicort) omeprazole 40 mg capsule,delayed 40 mg PO QPM #90 caps 05/17/22 06/08/22 Rx release Past Med/Surg History Medical History Adenocarcinoma of prostate Atrial fibrillation 1 episode, dx after prostatectomy. converted on his own with medication -- no current issues. Bronchiectasis without complication GERD (gastroesophageal reflux disease) Gout History of prostate cancer (~2014) History of squamous cell carcinoma in situ of skin Interstitial lung disease pt denies -- states not fully diagnosed Interstitial lung disease Night sweats JESSI (obstructive sleep apnea) cpap nightly Osteoarthritis Peripheral neuropathy bilateral feet Pulmonary nodules Seasonal allergies Shortness of breath with exercise Surgical History History of anesthesia reaction "SENSITIVE TO IT" History of arthroscopy LEFT KNEE History of cataract surgery RT/LEFT History of colonoscopy History of esophagogastroduodenoscopy (EGD) History of prostatectomy History of vasectomy Hx of umbilical hernia repair (02/25/19) Laparoscopic Umbilical Hernia Repair Dr. Vera 02/25/19 Family History Father Prostate cancer Brother Myocardial infarction Other Bladder cancer Cancer Heart disease Lung cancer Nephrolithiasis No family history of adverse response to anesthesia Tuberculosis Denies family history of Ovarian cancer Breast cancer Bleeding disorder Colorectal cancer Social History Smoking Status: Never smoker Cigarettes Per Day: CIGAR OCCASIONALLY THROUGHOUT YEAR; Second Hand Exposure: No; Hx Alcohol Use: Yes Alcohol type: beer Alcohol Intake Frequency: 2-4 x/Month Hx Substance Use: No Preferred Language: Beninese Communication Ability: Effective Visual Impairment: No Limitations Parts Room Assistant Required: No Beliefs That Will Affect Care: None marital status: Current Living Situation: Spouse current occupational status: retired Feels Safe at Home: Yes caffeine: Yes Dental Care, Regularly: Yes Physical Activity Frequency: Daily Seatbelt Use: always Sunscreen Use: Yes Assistive Devices: Glasses Review of Systems Review of Systems: All systems reviewed & are unremarkable except as noted in HPI & below Physical Exam Physical Exam: General: patient resting comfortably, NAD, non-toxic in appearance, AA&O x 4 Skin: warm, dry, intact, no rashes or lesions HEENT: NC/AT, PERRL, EOMI, anicteric sclera, conjunctiva without injection, external ear normal to inspection and nontender, nares patent, moist mucus membranes, dentition intact, no oropharyngeal lesions, neck supple, trachea midline, no LAD, no thyromegaly, no JVD Heart: +S1/S2, regular, no m/r/g, no reproducible chest wall discomfort Lungs: equal air entry bilaterally, no rales/rhonchi/wheezes Abd: +BS, soft, NT/ND, no masses/organomegaly/ascites Ext: warm, 2+ pulses in UE/LE bilaterally, no clubbing/cyanosis or edema Neuro: nonfocal, patient AA&O x 4, speech intact, no facial droop, moving all extremities on command with equal strength 5/5, ambulates without difficulty Results & Data Results & Data ([facility]) Vital Signs (Past 12 Hours) Vital Signs Temp Pulse Pulse Resp BP BP Pulse Ox 06/10/22 03:00 59 L 18 123/66 95 06/10/22 02:30 62 20 133/78 97 06/10/22 01:36 66 98 06/10/22 01:25 36.7 C 58 L 16 149/85 H 98 06/10/22 01:25 06/10/22 01:27 36.6 C 91 H 18 164/94 H 97 O2 Del Method 06/10/22 03:00 06/10/22 02:30 06/10/22 01:36 Room Air 06/10/22 01:25 Room Air 06/10/22 01:25 Room Air 06/10/22 01:27 Room Air Laboratory Results Laboratory Results WBC 6.66 K/ul (4.8-10.8) 06/10/22 01:38 RBC 4.28 M/uL (4.63-6.08) L 06/10/22 01:38 Hgb 15.5 g/dl (14.0-18.0) 06/10/22 01:38 Hct 42.6 % (40.1-51.0) 06/10/22 01:38 MCV 99.5 fL (80.0-100.0) 06/10/22 01:38 MCH 36.2 pg (25.0-34.0) H 06/10/22 01:38 MCHC 36.4 g/dL (32.0-36.0) H 06/10/22 01:38 RDW Std Deviation 46.0 fL (36.4-46.3) 06/10/22 01:38 RDW Coeff of Chris 12.5 % (11.5-14.5) 06/10/22 01:38 Plt Count 207 K/uL (130-400) 06/10/22 01:38 MPV 9.7 fL (9.4-12.4) 06/10/22 01:38 Immature Gran % (Auto) 0.3 % 06/10/22 01:38 Neut % (Auto) 39.5 % 06/10/22 01:38 Lymph % (Auto) 44.3 % 06/10/22 01:38 Ceiba % (Auto) 13.8 % 06/10/22 01:38 Eos % (Auto) 1.5 % 06/10/22 01:38 Baso % (Auto) 0.6 % 06/10/22 01:38 Neut # (Auto) 2.63 K/uL (1.4-6.5) 06/10/22 01:38 Lymph # (Auto) 2.95 K/uL (1.2-3.4) 06/10/22 01:38 Ceiba # (Auto) 0.92 K/uL (0.24-0.82) H 06/10/22 01:38 Eos # (Auto) 0.10 K/uL (0-0.50) 06/10/22 01:38 Baso # (Auto) 0.04 K/uL (0-0.2) 06/10/22 01:38 Immature Gran # (Auto) 0.02 K/uL (0.00-0.02) 06/10/22 01:38 Sodium 139 mmol/L (136-145) 06/10/22 01:38 Potassium 3.7 mmol/L (3.5-5.1) 06/10/22 01:38 Chloride 104 mmol/L (98-107) 06/10/22 01:38 Carbon Dioxide 28 mmol/L (21-32) 06/10/22 01:38 Anion Gap 7 (3-11) 06/10/22 01:38 BUN 15 mg/dl (6-23) 06/10/22 01:38 Creatinine 0.91 mg/dl (0.6-1.4) 06/10/22 01:38 Est Cr Clr Drug Dosing 75.5 ml/min 06/10/22 01:38 Est GFR ( Amer) 98.6 ml/min 06/10/22 01:38 Est GFR (Non-Af Amer) 85.1 ml/min 06/10/22 01:38 BUN/Creatinine Ratio 16.5 (10-20) 06/10/22 01:38 Glucose 101 mg/dl (70-99(Fasting)) H 06/10/22 01:38 Calcium 9.2 mg/dl (8.5-10.1) 06/10/22 01:38 Total Bilirubin 0.5 mg/dl (0.2-1.0) 06/10/22 01:38 AST 32 U/L (13-39) 06/10/22 01:38 ALT 33 U/L (7-52) 06/10/22 01:38 Alkaline Phosphatase 138 U/L (34-104) H 06/10/22 01:38 Troponin I High Sens 5.8 pg/ml (0-20) 06/10/22 01:38 Total Protein 7.0 gm/dl (6.0-8.3) 06/10/22 01:38 Albumin 4.0 gm/dl (3.4-5.0) 06/10/22 01:38 Globulin 3.0 gm/dl (2.5-4.0) 06/10/22 01:38 Albumin/Globulin Ratio 1.3 (0.9-2) 06/10/22 01:38 Lipase 16 U/L (11-82) 06/10/22 01:38 SARS-CoV-2, RNA, NAAT NEGATIVE (NEGATIVE) 06/10/22 01:45 PG Care Time/CCT Total # of Minutes Spent Total Time Spent with Patient: Total time spent is greater than 50% in coordination of care (as documented) at patient's floor/unit and/or counseling patient: Coding Level of Care Code 65881 INT INP/OBS CARE 2/55MIN Diagnoses Chest pain R07.9 Palpitations R00.2 Interstitial lung disease J84.9 GERD (gastroesophageal reflux disease) K21.9
[2022-06-10] MEDS ORDERED: ACETAMINOPHEN 325 MG TAB PO PRN (04:51)
[2022-06-10] MEDS ORDERED: NON-FORMULARY MEDICATION (Flutter Valve device) SCH (04:51)
[2022-06-10] MEDS ORDERED: ALBUTEROL HFA 8 GM INHALER INH PRN (04:51)
[2022-06-10 05:43] LABS: Phosphorus 2.2 mg/dl (2.5-4.9)
[2022-06-10] MEDS ORDERED: PANTOprazole 40 MG TAB PO SCH ×2 (09:00→21:00)
[2022-06-10] MEDS ORDERED: FLUTICASONE/VILANTEROL 100/25MCG 14 PUFFS/INHALER INH SCH (09:00)
--- NOTE | 2022-06-10 09:36 | XCELERA ---
[id number]
--- NOTE | 2022-06-10 10:00 | XRay Report ---
SINGLE VIEW CHEST CLINICAL HISTORY: Atypical chest pain. FINDINGS: An AP, portable, upright chest radiograph is compared to chest x-ray and chest CT dated 07/07. The heart is enlarged noting atherosclerotic calcification of the thoracic aorta. The pulmonar y vasculature is noncongested. Chronic interstitial thickening and subpleural reticulation is similar to previous. No airspace consolidation or large pleural effusion is identified. Scarring/atelectasis is noted at the lung bases. No pneumothorax is seen. The skeletal structures are osteopenic. The bon y thorax is grossly intact. IMPRESSION: Cardiomegaly with no acute cardiopulmonary abnormality. ACT 112: Negative or not required by law. Electronically signed by: Aden Hernandez M.D. 06/10/2022 9:58 AM
[2022-06-10] MEDS ORDERED: Nursing to Pharmacy Communication SCH (10:15)
--- NOTE | 2022-06-10 14:03 | Electrocardiogram Report ---
Test Reason : Blood Pressure : / mmHG Vent. Rate : 084 BPM Atrial Rate : 084 BPM P-R Int : 172 ms QRS Dur : 100 ms QT Int : 382 ms P-R-T Axes : 054 062 039 degrees QTc Int : 451 ms Normal sinus rhythm Possible Left atrial enlargement Incomplete right bundle branch block Borderline ECG When compared with ECG of 07-JUL-2021 08:49, No significant change was found Confirmed by To Jose ([id number]) on 06/10/2022 2:03:06 PM Referred By: REFERRED SELF Confirmed By:To Jose
--- NOTE | 2022-06-10 14:38 | Discharge Summary ---
Date of Service June 10, 2022 Admission HPI Per Admitting Provider Chan Perez is a pleasant 71yo male with history of ILD for which he follows with Pulmonology and GERD presenting with episode of chest discomfort and palpitations. Patient woke from sleep on 06/10/21 at 12:00 with feeling of his heart racing, headache, substernal chest pressure and nausea. He got out of bed and walked around to try to get his symptoms to improve. He checked his heart rate and reports it was elevated for him, ranging 95-105. Chest pressure substernal tightness, non-pleuritic, non-radiating and non-exertional. Symptoms continued therefore he called a friend to drive him to the ER. Patient overall is active. He does report dizziness at times following exertion. He has not had exertional or post-exertional syncope nor exertional chest pain. He has stable SOB. Denies fever, chills, cough, abdominal pain, vomiting or diarrhea. He states that his heart rate can be slow at times in the 50's and fast into the 90's and 100's at times. He does have a remote history of atrial fibrillation which occurred post- operatively. To his knowledge he has had no recurrence of arrhythmia. No medication for AF. In the ER he is afebrile, sinus bradycardia with HR of 59, BP stable ER Course: ASA Nitro Principal Diagnosis chest pain Discharge Exam The patient is awake, alert and oriented 3, well developed and well nourished, normocephalic and atraumatic, lying in bed and in no acute distress. HEENT--PERRL, EOMI, mucous membranes and oropharynx mildly dry Neck--supple. No JVD. No bruits. Thyroid normal, trachea midline, no adenopathy. Heart--normal S1 and S2. No murmurs, rubs or gallops. Lungs--clear bilaterally, no respiratory distress, no accessory muscle use. Abdomen--normal bowel sounds and soft. Mild epigastric and left sided abdominal pain Extremities--no cyanosis or clubbing. No edema. Dermatologic--normal skin turgor, normal color, no abnormal lymph nodes, no rash. Neurologic--cranial nerves II through XII grossly intact. Rheumatologic--normal range of motion. Psychiatric--normal affect. Discharge Data Allergies Allergy/AdvReac Type Severity Reaction Status Date / Time lactose AdvReac Intermediate Abdominal Verified 06/08/22 09:09 Pain Consultations 06/10/22 03:42 ED Decision to Admit Stat Hospital Course (1) Chest pain: 71yo male with history of ILD presents with episode of substernal chest discomfort and palpitations that woke him from sleep. Workup thus far is unremarkable to include normal electrolytes, troponin of 5.8, normal CXR and EKG. Patient with sinus bradycardia on telemetry, no arrhythmia. Chest pain has resolved. -2 d ECHO was essentially normal, no wma -PCP already scheduled outpatient stress test, patient urged to follow up (2) Palpitations: EKG shows sinus rhythm (3) Interstitial lung disease: Patient with ILD. Follows with Pulmonary. Stable. No O2 requirements -Continue Budesonide/Formoterol and Albuterol -Continue Flutter valve (4) GERD (gastroesophageal reflux disease): Chronic. Controlled -Protonix while inpatient F/E/N - Heplock. Electrolytes WNL. Regular diet as tolerated Ppx - Low risk for DVT, encourage ambulation Code - Full per discussion with patient Dispo - d/c home Total Time Total Time Spent Total Time Spent (In Minutes): 35 Discharge Plan Discharge Items Patient Disposition: Home - Self-Care Reason For Visit: PALPITATIONS Discharge Diagnosis: chest pain-resolved Condition on Discharge: Good Activity: Resume your previous activity Non-emergency contact: Primary Care Provider Call non-emergency contact if: you have any medication questions and your symptoms worsen Follow-up/Referrals: Heather Frazier MD [Primary Care Provider] - Diet: Regular Addtl Attending Provider Instructions: please follow up with your PCP regarding the already scheduled stress test Pending Studies at Discharge: No Stand-Alone Forms: My [employer], Smoking Cessation Medications and DC Order Prescriptions: Continued omeprazole 40 mg capsule,delayed release(DR/EC) 40 mg PO QPM Qty: 90 1RF albuterol sulfate 90 mcg/actuation HFA aerosol inhaler 2 puff inhalation 6XD PRN (Reason: shortness of breath or wheezing) Qty: 6.7 0RF (DME) Flutter Valve Device See Rx Instructions .ROUTE .MEDSUPPLY Qty: 1 0RF Rx Instructions: As directed budesonide-formoterol [Symbicort] 80-4.5 mcg/actuation HFA aerosol inhaler 2 puff inhalation Q12H Qty: 10.2 2RF cholecalciferol (vitamin D3) [Vitamin D3] 50 mcg (2,000 unit) Capsule 50 mcg PO QPM Caltrate 600 plus D 600 mg (1,500 mg)-800 unit Tablet,Chewable 1 tab PO QPM Discharge Orders: Discharge Order (Routine); Ordered 06/10/22 Ordered By: Lexii Morfin/Other Patient Handouts: Your Heart's Electrical System, Understanding Heart Palpitations Admission Data Admit Date/Time: 06/10/22 04:15 Attending Provider: Lexii Quiles Admit Provider: Mirian Brasher Primary Care Provider: Heather Frazier Other Providers: Mirian Brasher Other Interventions: Discharge Summary Assessment (RN) Last Done: 06/10/22 11:48 Coding Level of Care Code HOSP INP/OBS DISCH >30 MIN Diagnoses Chest pain R07.9 Palpitations R00.2 Interstitial lung disease J84.9 GERD (gastroesophageal reflux disease) K21.9 Time Spent (min) 35
== END 2022-06-10 12:15 | disposition home or self-care (01) ==
LOC: EDINP 01:25 → ED 01:25 → SUATTDRO 04:15 → EDINP 04:51